=== PATIENT | female | born 1930 | race Caucasian/White ===

== ENCOUNTER 2017-01-23 11:30 | Inpatient (IN) | payer BC, OTHER ==
[2017-01-23] VITALS (10 sets, daily range): BP systolic 150–220; BP diastolic 66–89; PULSE 54–64; TEMP 36.5–36.8; O2SAT 95–98; Ht 162.6 cm; Wt 90.1 kg
[~2017-01-23] VITALS: Ht 162.6 cm; Wt 90.1 kg
[2017-01-23 12:15] LABS: BASO % 0.2 %; BASO ABS # 0.02 K/uL (0-0.2); COMPLETE YES; EOS % 1.8 %; HEMATOCRIT 37.9 % (37-47); IG% 0.3 %; LYMPH % 12.3 %; LYMPH ABS # 1.26 K/uL (1.2-3.4); MEAN CELL VOLUME 90.2 fL (80-100); MEAN CORPUSCULAR HEMOGLOBIN 30.7 pg (25-34); MEAN PLATELET VOLUME 10.4 fL (7.4-10.4); MONO % 9.1 %; NEUT % 76.3 %; PLATELET COUNT 256 K/uL (130-400); WHITE BLOOD COUNT 10.25 K/uL (4.8-10.8)
[2017-01-23 12:34] LABS: BLOOD UREA NITROGEN 27 mg/dl (7-18); GLUCOSE 90 mg/dl (70-99)
[2017-01-23 12:35] LABS: ALT/SGPT 41 U/L (12-78); BUN/CREATININE RATIO 15.9 (10-20); CALCIUM 10.4 mg/dl (8.5-10.1); CARBON DIOXIDE 26 mmol/L (21-32); CHLORIDE 106 mmol/L (98-107); POTASSIUM 4.3 mmol/L (3.5-5.1); SODIUM 138 mmol/L (136-145)
[2017-01-23 12:40] LABS: ALKALINE PHOSPHATASE 143 U/L (45-117); AST/SGOT 28 U/L (15-37); CKMB/CK RATIO 7.7 (0-3.0)
[2017-01-23] MEDS ORDERED: MULT60CA PO (12:48)
--- NOTE | 2017-01-23 13:00 | DIAGNOSTIC IMAGING REPORT ---
CHEST ONE VIEW PORTABLE CLINICAL HISTORY: Chest pain, jaw pain and sweating. COMPARISON STUDY: No previous studies for comparison. FINDINGS: Lung volumes are normal. There is no consolidation to suggest pneumonia and there is no evidence of pulmonary edema. There is an equivocal hiatal hernia. Mild cardiomegaly is noted. No pneumothorax or pleural effusion is present. IMPRESSION: 1. No acute cardiopulmonary findings. 2. Mild cardiomegaly. Electronically signed by: Jeffry Carranza M.D. 01/23/2017 12:59 PM Dictated Date/Time: 01/23/2017 12:58 PM
--- NOTE | 2017-01-23 13:05 | EMERGENCY ROOM VISIT NOTE ---
History Report prepared by An: Freddie Avalos Under the Supervision of: Dr. Az Penny M.D. First contact with patient: 11:46 Chief Complaint: CARDIAC ASSESSMENT Stated Complaint: PREV. EVENING, JAW PAIN, SWEATING, SLIGHT NAUSEA Nursing Triage Summary: Pt reports last night sweating, pain on b/l jaw, decreased appetite, nausea. Pt states sent by PCP, had a routine appt with him this morning. Mild SOB. Denies lightheaded or cp. Denies any pain at present time. Pt states she is unsure if she had cp last night as her "jaw pain was so bad." History of Present Illness The patient is a 86 year old female who presents to the Emergency Room with complaints of intermittent bilateral jaw pain beginning yesterday. She also complains of mild shortness of breath, nausea, and sweating along with her episodes of pain. She states that she has been having increasing shortness of breath for the past year. The patient had a routine check up with her PCP this morning and was referred to the ED. She has no cardiac history, but has a history of hypertension. She has a family history of heart attack at a young age. The patient denies any chest pain, neck pain, back pain, or calf pain. She had a stress test about a year ago. Source of History: patient Onset: Yesterday Position: jaw (bilateral) Timing: intermittent Associated Symptoms: + diaphoresis, + SOB (mild), + nausea, No neck pain, No chest pain, No back pain Note: The patient denies any calf pain. Review of Systems See HPI for pertinent positives & negatives. A total of 10 systems reviewed and were otherwise negative. Past Medical & Surgical Medical Problems: (1) HTN (hypertension) Old medical records were reviewed. Nurse's notes were reviewed and I agree with. Family History No pertinent family history stated. Social History Smoking Status: Never Smoker Drug Use: none Occupation Status: retired Current/Historical Medications Scheduled Multiple Vitamins W/ Minerals (Preservision Areds 2), 1 CAP PO BID Allergies Coded Allergies: No Known Allergies (Unverified , 01/23/17) Physical Exam Vital Signs Date Time Temp Pulse Resp B/P (MAP) Pulse Ox O2 Delivery O2 Flow Rate FiO2 01/23/17 13:11 50 18 186/90 98 Room Air 01/23/17 12:14 56 01/23/17 11:49 97 Room Air 01/23/17 11:41 36.8 55 18 192/78 95 Room Air Physical Exam General: Non-ill appearing older female in no acute distress. HEENT: Normal cephalic atraumatic. Pupils are equal round and reactive to light. Extraocular movements are intact. Oropharynx is pink with moist mucous membranes. No swelling of the mouth lips or tongue. Neck: Supple with a midline trachea. No meningeal signs or stiffness, no JVD or bruits. No Stridor. Chest: Clear to auscultation bilaterally. No wheezes or rhonchi. No increased work of breathing. Heart: regular rate and rhythm. Abdomen: Soft nontender, nondistended without rebound guarding or rigidity. Extremities: No cyanosis clubbing or edema. No calf tenderness or assymetry Spine/Back. Non tender to palpation. No CVA tenderness Skin: Good turgor without rashes. Neurologic exam: Cranial nerves two through 12 are intact. Motor and sensation are intact and symmetrical throughout. Medical Decision & Procedures ER Provider Diagnostic Interpretation: X-ray results as stated below per interpretation by me and the radiologist: CHEST ONE VIEW PORTABLE FINDINGS: Lung volumes are normal. There is no consolidation to suggest pneumonia and there is no evidence of pulmonary edema. There is an equivocal hiatal hernia. Mild cardiomegaly is noted. No pneumothorax or pleural effusion is present. IMPRESSION: 1. No acute cardiopulmonary findings. 2. Mild cardiomegaly. Electronically signed by: Jeffry Carranza M.D. Laboratory Results 01/23/17 12:00 Red Blood Count 4.20, Mean Corpuscular Volume 90.2, Mean Corpuscular Hemoglobin 30.7, Mean Corpuscular Hemoglobin Concent 34.0, Mean Platelet Volume 10.4, Neutrophils (%) (Auto) 76.3, Lymphocytes (%) (Auto) 12.3, Monocytes (%) (Auto) 9.1, Eosinophils (%) (Auto) 1.8, Basophils (%) (Auto) 0.2, Neutrophils # (Auto) 7.83, Lymphocytes # (Auto) 1.26, Monocytes # (Auto) 0.93, Eosinophils # (Auto) 0.18, Basophils # (Auto) 0.02 Test 01/23/17 12:00 01/23/17 12:10 White Blood Count 10.25 K/uL (4.8-10.8) Red Blood Count 4.20 M/uL (4.2-5.4) Hemoglobin 12.9 g/dL (12.0-16.0) Hematocrit 37.9 % (37-47) Mean Corpuscular Volume 90.2 fL (80-100) Mean Corpuscular Hemoglobin 30.7 pg (25-34) Mean Corpuscular Hemoglobin Concent 34.0 g/dl (32-36) Platelet Count 256 K/uL (130-400) Mean Platelet Volume 10.4 fL (7.4-10.4) Neutrophils (%) (Auto) 76.3 % Lymphocytes (%) (Auto) 12.3 % Monocytes (%) (Auto) 9.1 % Eosinophils (%) (Auto) 1.8 % Basophils (%) (Auto) 0.2 % Neutrophils # (Auto) 7.83 K/uL (1.4-6.5) Lymphocytes # (Auto) 1.26 K/uL (1.2-3.4) Monocytes # (Auto) 0.93 K/uL (0.11-0.59) Eosinophils # (Auto) 0.18 K/uL (0-0.5) Basophils # (Auto) 0.02 K/uL (0-0.2) RDW Standard Deviation 45.6 fL (36.4-46.3) RDW Coefficient of Variation 13.8 % (11.5-14.5) Immature Granulocyte % (Auto) 0.3 % Immature Granulocyte # (Auto) 0.03 K/uL (0.00-0.02) Prothrombin Time 10.1 SECONDS (9.0-12.0) Prothromb Time International Ratio 0.9 (0.9-1.1) Total Bilirubin 0.4 mg/dl (0.2-1) Direct Bilirubin < 0.1 mg/dl (0-0.2) Aspartate Amino Transf (AST/SGOT) 28 U/L (15-37) Alanine Aminotransferase (ALT/SGPT) 41 U/L (12-78) Alkaline Phosphatase 143 U/L (45-117) Total Protein 7.6 gm/dl (6.4-8.2) Albumin 3.7 gm/dl (3.4-5.0) Lipase 273 U/L (73-393) 25-Hydroxy Vitamin D Total 61.9 ng/ml (30-100) Thyroid Stimulating Hormone (TSH) 1.660 uIu/ml (0.300-4.500) Bedside Troponin I 1.500 ng/ml (0-0.045) Laboratory studies as stated above per my review. ECG Indication: other (jaw pain) Rate (beats per minute): 56 Rhythm: sinus bradycardia Findings: no ectopy, other (No definite acute ischemic changes) Comparison ECG Date: May 12, 2010 Change: Questionable inferior ST changes. ED Course 1148: Past medical records reviewed. The patient was evaluated in room C10, and a complete history and physical examination were performed. 1245: Upon reevaluation, the patient is resting comfortably. I discussed the results and treatment plan with the patient. She verbalized agreement of the treatment plan. The patient will be evaluated for further management. Medical Decision Differentials include, but are not limited to; acute coronary syndrome, arrhythmia, dental abnormality, CHF, infection, and electrolyte or metabolic abnormality. Blood pressure Screening: Patient was found to have an elevated blood pressure. Referral was deterred to the hospitalist team. Medication Reconciliation: I attest that I have personally reviewed the patient' s current medication list. This patient comes in as described above. She had jaw pain last night and her primary care physician was concerned for possible angina. Her symptoms have resolved at present and she looks well. She has no chest pain, shortness of breath or jaw pain at present. Her initial EKG shows some questionable changes inferiorly. I did of a follow-up EKG which shows resolution of these potential changes and no progression. Her troponin however was significantly elevated at 1.5. This suggests that she's had a non-ST segment elevation [place] last evening. She has no findings to suggest. She i= has no findings to suggest that she is s in congestive heart failure . She has no acute electrode or metabolic abnormalities. She's had no arrhythmia. She did receive a full strength aspirin in the primary care doctor's office. She needs to be admitted for further cardiac workup treatment and evaluation and again at this point, she is 100% asymptomatic and will be admitted. I did consult Dr. Mcguire who saw her in the emergency department. Consults Time Called: [phone] Consulting Physician: Dr. Mcguire -[facility] [place] Returned Call: [phone] Discussed the patient's case. The patient will be evaluated for further management. Impression Primary Impression: NSTEMI (non-ST elevated myocardial infarction) Additional Impressions: Jaw pain Elevated troponin Scribe Attestation The scribe's documentation has been prepared under my direction and personally reviewed by me in its entirety. I confirm that the note above accurately reflects all work, treatment, procedures, and medical decision making performed by me. Departure Information Dispostion Being Evaluated By Hospitalist Referrals Charly Santillan M.D. (PCP) Patient Instructions My [facility] Problem Qualifiers
[2017-01-23] MEDS ORDERED: NITROGLYCERIN 0.4 MG SL PER TAB CHARGE SL PRN (14:00)
[2017-01-23] MEDS ORDERED: ACETAMINOPHEN 325 MG TAB PO PRN (14:00)
[2017-01-23] MEDS ORDERED: ONDANSETRON INJ 2 MG/ML 2 ML VIAL IV PRN (14:00)
[2017-01-23] MEDS ORDERED: MoRPHine SULFATE 2 MG/ML CARP IV PRN (14:00)
[2017-01-23] MEDS ORDERED: PNEUMOCOCCAL ADMINISTRATION CHARGE ONE (14:45)
[2017-01-23] MEDS ORDERED: PNEUMOCOCCAL POLYSACCHARIDES 25 MCG/0.5 ML VIAL/SYR IM. ONE (14:45)
[2017-01-23] MEDS: HydrALAZINE HCL 20 MG/ML VIAL IV. PRN (15:06)
[2017-01-23] MEDS ORDERED: NiCARDipine HCL INJ 2.5 MG/ML 10 ML AMP ONE (15:14)
[2017-01-23] MEDS ORDERED: HEPARIN SOD (PORCINE) 1000 UNIT/ML 10 ML VIAL ONE (15:14)
[2017-01-23] MEDS ORDERED: FENTANYL CITRATE INJ 50 MCG/1 ML 2 ML VIAL ONE (15:14)
[2017-01-23] MEDS ORDERED: MIDAZOLAM HCL 1 MG/ML 2ML VIAL ONE (15:15)
[2017-01-23] MEDS ORDERED: NITROGLYCERIN OINT 2% 1GM PACKET EXT PRN (15:15)
[2017-01-23] MEDS ORDERED: NITROGLYCERIN/D5W 100MCG/ML 20ML SYR ONE (15:15)
[2017-01-23] MEDS ORDERED: METOPROLOL TARTRATE 25 MG TAB PO ONE (15:26)
[2017-01-23] MEDS ORDERED: HEPARIN IV BOLUS 5,000 UNIT in SYRINGE 0 ML IV ONE (15:30)
[2017-01-23] MEDS ORDERED: HEPARIN 25000 UNIT/ D5W 500 ML (PHARMACY PREPARED) IV PRN ×2 (15:30)
[2017-01-23 15:33] LABS: INR 0.9 (0.9-1.1); PARTIAL THROMBOPLASTIN RATIO 1.1; PROTHROMBIN TIME (PATIENT) 10.1 SECONDS (9.0-12.0)
--- NOTE | 2017-01-23 15:39 | History and Physical ---
History & Physical Date & Time of Service: Jan 23, 2017 at 13:58 Chief Complaint: Prev. Evening, Jaw Pain, Sweating, Slight Nausea Primary Care Physician: Charly Santillan M.D. History of Present Illness Source: patient, family Pt is an 86 yo female with a h/o HTN (not treated with Rx meds, but is on herbal supplements), CKD Stage III, who presents with left sided jaw pain that came on last night at rest around 1800 after eating dinner. She states it was severe, a 10/10 in severity,nonradiating, associated with profuse diaphoresis and some nausea. She took an ASA at home and had very minimal relief but was able to go to sleep by 1930. When she woke up this AM, the pain was gone but she had a regularly scheduled well visit with her PCP this AM. SHe told him the story and he gave her ASA 325mg and sent her to the ER. In ER her initial ECG showed possible ST elevation in III and not quite in lead II, which then resolved on subsequent ECG, but troponin was elevated at 1.5. She remained completely symptom free in the ER. She was quite hypertensive in the 190s-200s systolic. SHe is very hesitant to take any prescription meds at all, but does take well over 50 separate herbal supplements on a daily basis (list too long to put in Med Rec). The case was discussed with Cardiology Dr. Lee and she will undergo cardiac cath tomorrow Past Medical/Surgical History PMH: HTN (hypertension) CKD Stage III PSH: Ch's Neuroma removal Family History Father- of [place] age 62, smoker Mother- age 98, healthy Sister-living age 92 and healthy Social History MEDICATIONS: MULTIPLE HOME MEDS ALL HERBAL SUPPLEMENTS not entered in MED REC Smoking Status: Never Smoker Alcohol Use: none Drug Use: none Housing status: lives alone Occupational Status: retired Multi-Drug Resistant Organisms History of MDRO: No Allergies Coded Allergies: No Known Allergies (Unverified , 01/23/17) Home Medications Scheduled Multiple Vitamins W/ Minerals (Preservision Areds 2), 1 CAP PO BID Review of Systems Constitutional: No fever, No chills Eyes: No problem reported ENT: No problem reported Respiratory: No shortness of breath Cardiovascular: No chest pain, No edema Abdomen: + problem reported (does have some ext hemorrhoids), No pain, No nausea, No vomiting, No GI bleeding Musculoskeletal: No problem reported Genitourinary - Female: No problem reported Neurologic: No problem reported Psychiatric: No problem reported Endocrine: No problem reported Hematologic / Lymphatic: No problem reported Integumentary: No problem reported Allergic / Immunologic: No problem reported Physical Exam Vital Signs Date Time Temp Pulse Resp B/P (MAP) Pulse Ox O2 Delivery O2 Flow Rate FiO2 01/23/17 13:11 50 18 186/90 98 Room Air 01/23/17 12:14 56 01/23/17 11:49 97 Room Air 01/23/17 11:41 36.8 55 18 192/78 95 Room Air General Appearance: WD/WN, no apparent distress Head: normocephalic, atraumatic Eyes: normal inspection, PERRL, EOMI, sclerae normal ENT: hearing grossly normal, pharynx normal Neck: supple, no adenopathy, thyroid normal, no JVD, no carotid bruits, trachea midline Respiratory/Chest: lungs clear, normal breath sounds, no respiratory distress, no accessory muscle use Cardiovascular: no gallop, no murmur, normal peripheral pulses, + bradycardia ( with regular rhythm), + pertinent finding (trace pitting edema legs bilat) Abdomen/GI: normal bowel sounds, non tender, soft, no organomegaly, no pulsatile mass Back: normal inspection, no muscle spasm Extremities/Musculoskelatal: normal inspection, no calf tenderness, no pedal edema, normal range of motion Neurologic/Psych: no motor/sensory deficits, alert, normal mood/affect, oriented x 3 Skin: normal color, warm/dry, no rash Diagnostics Laboratory Results Results Past 24 Hours Test 01/23/17 11:56 01/23/17 12:00 01/23/17 12:10 Range/Units Creatine Kinase MB Ratio 7.7 0-3.0 White Blood Count 10.25 4.8-10.8 K/uL Red Blood Count 4.20 4.2-5.4 M/uL Hemoglobin 12.9 12.0-16.0 g/dL Hematocrit 37.9 37-47 % Mean Corpuscular Volume 90.2 80-100 fL Mean Corpuscular Hemoglobin 30.7 25-34 pg Mean Corpuscular Hemoglobin Concent 34.0 32-36 g/dl Platelet Count 256 130-400 K/uL Mean Platelet Volume 10.4 7.4-10.4 fL Neutrophils (%) (Auto) 76.3 % Lymphocytes (%) (Auto) 12.3 % Monocytes (%) (Auto) 9.1 % Eosinophils (%) (Auto) 1.8 % Basophils (%) (Auto) 0.2 % Neutrophils # (Auto) 7.83 1.4-6.5 K/uL Lymphocytes # (Auto) 1.26 1.2-3.4 K/uL Monocytes # (Auto) 0.93 0.11-0.59 K/uL Eosinophils # (Auto) 0.18 0-0.5 K/uL Basophils # (Auto) 0.02 0-0.2 K/uL RDW Standard Deviation 45.6 36.4-46.3 fL RDW Coefficient of Variation 13.8 11.5-14.5 % Immature Granulocyte % (Auto) 0.3 % Immature Granulocyte # (Auto) 0.03 0.00-0.02 K/uL Sodium Level 138 136-145 mmol/L Potassium Level 4.3 3.5-5.1 mmol/L Chloride Level 106 98-107 mmol/L Carbon Dioxide Level 26 21-32 mmol/L Anion Gap 6.0 3-11 mmol/L Blood Urea Nitrogen 27 7-18 mg/dl Creatinine 1.70 0.60-1.20 mg/dl Est Creatinine Clear Calc Drug Dose 25.1 ml/min Estimated GFR () 30.9 Estimated GFR (Non- 26.6 BUN/Creatinine Ratio 15.9 10-20 Random Glucose 90 70-99 mg/dl Calcium Level 10.4 8.5-10.1 mg/dl Total Bilirubin 0.4 0.2-1 mg/dl Direct Bilirubin < 0.1 0-0.2 mg/dl Aspartate Amino Transf (AST/SGOT) 28 15-37 U/L Alanine Aminotransferase (ALT/SGPT) 41 12-78 U/L Alkaline Phosphatase 143 45-117 U/L Total Creatine Kinase 122 26-192 U/L Creatine Kinase MB 9.4 0.5-3.6 ng/ml Total Protein 7.6 6.4-8.2 gm/dl Albumin 3.7 3.4-5.0 gm/dl Lipase 273 73-393 U/L Bedside Troponin I 1.500 0-0.045 ng/ml Diagnostic Radiology CXR image personally reviewed by me and I agree with Rad assessment: CHEST ONE VIEW PORTABLE CLINICAL HISTORY: Chest pain, jaw pain and sweating. COMPARISON STUDY: No previous studies for comparison. FINDINGS: Lung volumes are normal. There is no consolidation to suggest pneumonia and there is no evidence of pulmonary edema. There is an equivocal hiatal hernia. Mild cardiomegaly is noted. No pneumothorax or pleural effusion is present. IMPRESSION: 1. No acute cardiopulmonary findings. 2. Mild cardiomegaly. EKG 1st ECG: Sinus xuan, ST elevation 1 mm lead III, 1/2 mm lead II 2nd ECG: Sinus xuan with 1st degree AV block, no ST elevations, left axis deviation Impression Assessment and Plan Pt is an 86 yo female with a h/o HTN (not treated with Rx meds, but is on herbal supplements), CKD Stage III, who presents with left sided jaw pain that came on last night at rest around 1800 after eating dinner. She states it was severe, a 10/10 in severity,nonradiating, associated with profuse diaphoresis and some nausea. She took an ASA at home and had very minimal relief but was able to go to sleep by 1930. When she woke up this AM, the pain was gone but she had a regularly scheduled well visit with her PCP this AM. SHe told him the story and he gave her ASA 325mg and sent her to the ER. In ER her initial ECG showed possible ST elevation in III and not quite in lead II, which then resolved on subsequent ECG, but troponin was elevated at 1.5. She remained completely symptom free in the ER. She was quite hypertensive in the 190s-200s systolic. SHe is very hesitant to take any prescription meds at all, but does take well over 50 separate herbal supplements on a daily basis (list too long to put in Med Rec). The case was discussed with Cardiology Dr. Lee and she will undergo cardiac cath tomorrow NSTEMI- no further jaw pain or symptoms. Troponin 1.5 initially, some dynamic ECG changes. ECHO at bedside with Security Compliance Engineer after admission showed no WMAs. -Consult to Cardiology appreciated -plan for cardiac cath on Sun however pt is saying she's not sure if she wants to go through with the procedure -continue ASA 81mg daily -start heparin gtt now after checking coags -trend troponins and CK,CK-MB -Cardiology says ok to give low dose metoprolol despite bradycardia--> start metoprolol [id number] po bid -tele monitoring -check lipid panel in AM -f/u on official ECHO report Hypertensive emergency-evidence of end-organ damage with LA, untreated with Rx drugs due to pt preference. Home BP low shows numerous readings in the 140s- 160s systolic that she brings with her. On some herbal supplements that are supposed to treat HTN -give hydralazine 10mg IV now -if BP still elevated, give Nitropaste 0.5in q6 Elevated Alk phos-likely secondary to fatty liver. Daughter thinks she has had this mild elevation for years. -no hermes pneeded inpatient -f/u with PCP Hypercalcemia-mild, unclear if change from baseline -check Vit D and iPTH as she is taking Vit D supplements in two forms as outpatient Proph- heparin gtt, SCDs Dispo-FULL CODE but pt is undecided, wants to discuss it with her daughter and may change her mind to a DNR Level of Care Telemetry Resuscitation Status FULL RESUSCITATION VTE Prophylaxis VTE Risk Assessment Done? Y/N: Yes Risk Level: Low Given or contraindicated: Unfractionated heparin SQ Additional Copies To Charly Santillan M.D.
--- NOTE | 2017-01-23 16:11 | ECHOCARDIOGRAM REPORT ---
*NOTICE TO RECEIVING [employer] This information is strictly Confidential and protected under [place] law. [place] law prohibits you from making any further disclosure of this information unless further disclosure is expressly permitted by the written consent of the person to whom it pertains or is authorized by law. A general authorization for the release of medical or other information is not sufficient for this purpose. Hospital accepts no responsibility if the information is made available to any other person, INCLUDING THE PATIENT. Interpretation Summary * Name: CHER VALLES Study Date: 01/23/2017 02:58 PM BP: 186/90 mmHg * Patient Location: C.2E\S\E204\S\1 HR: 52 * : 1930 (M/d/yyyy) Gender: Female Height: 64 in * Age: 86 yrs Ethnicity: [place] Weight: 194 lb * Ordering Physician: Radha Mcguire * Referring Physician: Self, Referred * Performed By: Serjio Smith RCS * * Reason For Study: Chest pain * BSA: 1.9 m2 * -- Conclusions -- * The left ventricle is hyperdynamic. * Grade I diastolic dysfunction, (abnormal relaxation pattern). * There is moderate right ventricular hypertrophy. * Mild aortic regurgitation. * Right ventricular systolic pressure is normal. Procedure Details * Left Ventricle The left ventricle is normal in size. There is normal left ventricular wall thickness. Ejection Fraction = 60-65%. The left ventricle is hyperdynamic. Grade I diastolic dysfunction, (abnormal relaxation pattern). * Right Ventricle The right ventricle is grossly normal size. There is moderate right ventricular hypertrophy. The right ventricular systolic function is normal. * Atria The left atrial size is normal. Right atrial size is normal. * Mitral Valve The mitral valve leaflets appear thickened, but open well. Significant mitral regurgitation is absent. * Tricuspid Valve The tricuspid valve is not well visualized. There is trace tricuspid regurgitation. Right ventricular systolic pressure is normal. * Aortic Valve The aortic valve is trileaflet. No hemodynamically significant valvular aortic stenosis. Mild aortic regurgitation. * Great Vessels The aortic root is normal size. * Pericardium/Pleural There is no pericardial effusion. * * MMode 2D Measurements and Calculations * IVSd 1.1 cm * * LVIDd 4.8 cm * LVIDs 2.6 cm * LVPWd 1.1 cm * * IVS/LVPW 1.0 * FS 45.4 % * EDV(Teich) 107.3 ml * ESV(Teich) 25.0 ml * EF(Teich) 76.7 % * * EDV(cubed) 110.3 ml * ESV(cubed) 17.9 ml * EF(cubed) 83.8 % * * LV mass(C)d 191.4 grams * LV mass(C)dI 99.1 grams/m\S\2 * * SV(Teich) 82.3 ml * SI(Teich) 42.6 ml/m\S\2 * SV(cubed) 92.4 ml * SI(cubed) 47.9 ml/m\S\2 * * Ao root diam 3.0 cm * Ao root area 7.3 cm\S\2 * * asc Aorta Diam 3.1 cm * * LVOT diam 2.1 cm * LVOT area 3.3 cm\S\2 * * LVAd ap4 32.7 cm\S\2 * LVLd ap4 8.3 cm * EDV(MOD-sp4) 108.4 ml * EDV(sp4-el) 109.2 ml * LVAs ap4 15.2 cm\S\2 * LVLs ap4 6.4 cm * ESV(MOD-sp4) 34.7 ml * ESV(sp4-el) 30.8 ml * EF(MOD-sp4) 68.0 % * EF(sp4-el) 71.8 % * * LVAd ap2 25.3 cm\S\2 * LVLd ap2 7.6 cm * EDV(MOD-sp2) 73.3 ml * EDV(sp2-el) 71.9 ml * LVAs ap2 12.3 cm\S\2 * LVLs ap2 5.8 cm * ESV(MOD-sp2) 23.5 ml * ESV(sp2-el) 22.4 ml * EF(MOD-sp2) 68.0 % * EF(sp2-el) 68.8 % * * LVLd %diff -10.01 % * EDV(MOD-bp) 93.3 ml * LVLs %diff -11.17 % * ESV(MOD-bp) 29.2 ml * EF(MOD-bp) 68.7 % * * SV(MOD-sp4) 73.8 ml * SI(MOD-sp4) 38.2 ml/m\S\2 * * SV(MOD-sp2) 49.8 ml * SI(MOD-sp2) 25.8 ml/m\S\2 * * SV(MOD-bp) 64.1 ml * SI(MOD-bp) 33.2 ml/m\S\2 * * SV(sp4-el) 78.4 ml * SI(sp4-el) 40.6 ml/m\S\2 * * SV(sp2-el) 49.5 ml * SI(sp2-el) 25.6 ml/m\S\2 * * * * * * Doppler Measurements and Calculations * MV E max alex 73.7 cm/sec * MV A max alex 123.7 cm/sec * * MV E/A 0.60 * * MV dec time 0.37 sec * * Ao V2 max 154.3 cm/sec * Ao max PG 9.5 mmHg * Ao max PG (full) 4.2 mmHg * MARIE(V,A) 2.5 cm\S\2 * MARIE(V,D) 2.5 cm\S\2 * * LV V1 max PG 5.3 mmHg * * LV V1 max 114.9 cm/sec * * TR max alex 209.0 cm/sec * * *
--- NOTE | 2017-01-23 17:12 | Medical Student: [facility] ---
Med Student History & Physical Date & Time of Service: Jan 23, 2017 at 16:03 Chief Complaint: Nstemi (Non-St Elevated Myocardial Infraction) Primary Care Physician: Charly Santillan M.D. History of Present Illness Source: patient 86yo female with history of HTN presenting with an episode of 4hr LT jaw/facial pain last night that has resolved. Pain began at 6pm, did no radiate anywhere, and was described as "excruciating", rated 10/10. She took home baby aspirin 81mg for pain management with minimal relief at around 7pm. She also reports concurrent mild nausea, diaphoresis, anorexia with dinner, and perhaps some mild chest discomfort but she is unsure, the pain in the jaw dominated all else per patient. Pain receded at 10pm and patient went to bed. She reports having jaw pain before that lasted approx. 5min before spontaneously resolving. She had no symptoms upon waking this morning. Patient went to her PCP this am for a pre-scheduled wellness visit where she was given aspirin 325mg and sent to ED for evaluation. Patient denies experiencing any SOB, tachypnea, tachycardia, palpitations, dizziness, vomiting, fever, and urinary/bowel changes Past Medical/Surgical History PMH Hearing impairment - wears hearing aids HTN - no medication Vaccinations are not up to date per patient preference Medications No prescription medications +25 supplements taken daily, see chart for details PSH Ch neuroma removal 40years ago Family History Father: HTN, [place] at 62 resulting in Remainder of family non-contributory Social History Never smoker No alcohol or illicit drug use Retired Diet - fairly good, decreased appetite over past few years Activity - does not exercise Smoking Status: Never Smoker Smokeless Tobacco Use: No Alcohol Use: none Drug Use: none Housing status: lives alone Occupational Status: retired Allergies Coded Allergies: No Known Allergies (Unverified , 01/23/17) Medications Multiple Vitamins W/ Minerals (Preservision Areds 2), 1 CAP PO BID Review of Systems Constitutional: No fever, No chills, No sweats, No weakness Eyes: No problem reported ENT: No problem reported Respiratory: No shortness of breath Cardiovascular: No chest pain, No edema, No palpitations Abdomen: + nausea (mild with pain, now resolved), No pain, No vomiting, No diarrhea, No constipation, No GI bleeding Musculoskeletal: No problem reported Neurologic: No weakness, No numbness/tingling Psychiatric: No problem reported Hematologic / Lymphatic: No problem reported Integumentary: No rash, No new/changing skin lesions Allergic / Immunologic: No environmental allergies, No seasonal allergies, No food allergies Physical Exam Vital Signs (24 Hours) Date Time Temp Pulse Resp B/P (MAP) Pulse Ox O2 Delivery O2 Flow Rate FiO2 01/23/17 14:19 54 16 200/90 96 Room Air 01/23/17 14:00 98 Room Air 01/23/17 13:11 50 18 186/90 98 Room Air 01/23/17 12:14 56 01/23/17 11:49 97 Room Air 01/23/17 11:41 36.8 55 18 192/78 95 Room Air General Appearance: no apparent distress, + obese Head: normocephalic, atraumatic Eyes: normal inspection, PERRL, sclerae normal ENT: pharynx normal Neck: supple, no adenopathy, no JVD, no carotid bruits, trachea midline Respiratory/Chest: chest non-tender, lungs clear, normal breath sounds, no respiratory distress, no accessory muscle use Cardiovascular: no JVD, + bradycardia, + pertinent finding (mild pitting edema lower extremities) Abdomen/GI: normal bowel sounds, non tender, soft, no organomegaly, no pulsatile mass, + hernia (umbilical - chronic) Back: normal inspection Extremities/Musculoskelatal: normal capillary refill, + pedal edema (mild) Neurologic/Psych: alert, normal mood/affect, oriented x 3 Skin: normal color, warm/dry, no rash Lymphatic: no adenopathy Diagnostics Laboratory Results Results Past 24 Hours Test 01/23/17 11:56 01/23/17 12:00 01/23/17 12:10 01/23/17 15:38 Range/Units Creatine Kinase MB Ratio 7.7 0-3.0 White Blood Count 10.25 4.8-10.8 K/uL Red Blood Count 4.20 4.2-5.4 M/uL Hemoglobin 12.9 12.0-16.0 g/dL Hematocrit 37.9 37-47 % Mean Corpuscular Volume 90.2 80-100 fL Mean Corpuscular Hemoglobin 30.7 25-34 pg Mean Corpuscular Hemoglobin Concent 34.0 32-36 g/dl Platelet Count 256 130-400 K/uL Mean Platelet Volume 10.4 7.4-10.4 fL Neutrophils (%) (Auto) 76.3 % Lymphocytes (%) (Auto) 12.3 % Monocytes (%) (Auto) 9.1 % Eosinophils (%) (Auto) 1.8 % Basophils (%) (Auto) 0.2 % Neutrophils # (Auto) 7.83 1.4-6.5 K/uL Lymphocytes # (Auto) 1.26 1.2-3.4 K/uL Monocytes # (Auto) 0.93 0.11-0.59 K/uL Eosinophils # (Auto) 0.18 0-0.5 K/uL Basophils # (Auto) 0.02 0-0.2 K/uL RDW Standard Deviation 45.6 36.4-46.3 fL RDW Coefficient of Variation 13.8 11.5-14.5 % Immature Granulocyte % (Auto) 0.3 % Immature Granulocyte # (Auto) 0.03 0.00-0.02 K/uL Prothrombin Time 10.1 9.0-12.0 SECONDS Prothromb Time International Ratio 0.9 0.9-1.1 Activated Partial Thromboplast Time 28.5 21.0-31.0 SECONDS Partial Thromboplastin Ratio 1.1 Sodium Level 138 136-145 mmol/L Potassium Level 4.3 3.5-5.1 mmol/L Chloride Level 106 98-107 mmol/L Carbon Dioxide Level 26 21-32 mmol/L Anion Gap 6.0 3-11 mmol/L Blood Urea Nitrogen 27 7-18 mg/dl Creatinine 1.70 0.60-1.20 mg/dl Est Creatinine Clear Calc Drug Dose 25.1 ml/min Estimated GFR () 30.9 Estimated GFR (Non- 26.6 BUN/Creatinine Ratio 15.9 10-20 Random Glucose 90 70-99 mg/dl Calcium Level 10.4 8.5-10.1 mg/dl Total Bilirubin 0.4 0.2-1 mg/dl Direct Bilirubin < 0.1 0-0.2 mg/dl Aspartate Amino Transf (AST/SGOT) 28 15-37 U/L Alanine Aminotransferase (ALT/SGPT) 41 12-78 U/L Alkaline Phosphatase 143 45-117 U/L Total Creatine Kinase 122 26-192 U/L Creatine Kinase MB 9.4 0.5-3.6 ng/ml Total Protein 7.6 6.4-8.2 gm/dl Albumin 3.7 3.4-5.0 gm/dl Lipase 273 73-393 U/L Bedside Troponin I 1.500 0-0.045 ng/ml Diagnostic Radiology Chest Xray 01/23 - Minor hiatal hernia - No acute cardiopulmonary process - Mild cardiomegaly CXR normal EKG Initial - Sinus bradycardia with first degree AV block - Mild ST elevation III, insignificant in aVR - T wave inversion V2 Second - No ST elevation or t wave inversion - LT axial deviation approx. -30degrees Impression Assessment and Plan Jaw pain secondary to NSTEMI unspecified - resolved - Echocardiogram to evaluate LV function, compare to old - Consult with cardiology for possible catheterization - Begin heparin drip in preparation for cath procedure - Addition nitro PRN, daily aspirin 81mg, lisinopril 10mg - Consider metoprolol 12.5mg (concern for bradycardia) - EKG PRN with return of pain Hypertension - 200s/90-100s - Hydralazine IV 20mg - Nitro past 0.5inch for further reduction - Consider metoprolol 12.5mg for additional control, concern for bradycardia Chronic Kidney Disease Stage 3 - elevated BUN + cret ( 27, 1.3) - Access PCP records - per patient these levels are typical - Trend while inpatient - Dose hospital medications with impaired renal function in mind Hypercalcemia - 10.4 - Attain vitamin D level to access for increased absorption due to supplementations contents - PTH level to evaluate endocrine/malignant etiology - Assess volume status as depletion can elevate levels Elevated alkaline phosphatase - 143 - Trend while hospitalized, if unresolved: - Attain GGT level to assess possible hepatic origin - Alk phos differentiation lab to determine bone v. biliary tract etiology Level of Care Telemetry Advanced Directives Existing Living Will: Yes Existing Power of Collet Gluer: Yes Note Total Time: Critical Care 30 - 74 minutes
--- NOTE | 2017-01-23 17:23 | Cardiology Consultation ---
Cardiology Consultation Date of Consultation: Jan 23, 2017. Requesting Physician: Dr. Mcguire Reason for Consultation: NSTEMI History of Present Illness Mrs. Phelps is an 86-year-old woman with a history of hypertension, stage 3 chronic kidney disease who presented today in setting of left-sided jaw pain, diaphoresis and nausea. The patient states that she was in her usual state of health yesterday until approximately 6:00 p.m. when developed jaw pain acutely while at rest. Pain persisted until she went to bed and eventually she was able to fall asleep. Patient awoke this morning with some mild residual jaw pain but improved from discomfort she had yesterday. She went to a regular scheduled visit with her PCP this morning who sent her to the emergency department. In the ED patient was chest pain free, hypertensive to 220s. Her initial EKG showed subtle ST elevations inferiorly, resolved on subsequent EKG. Her point of care troponin was positive at 1.5. She was admitted to telemetry has remained chest pain-free. Next No prior cardiac history. No prior similar pain in the past. Past Medical/Surgical History Hypertension (not on antihypertensives), stage 3 chronic kidney disease baseline serum creatinine around 1.7. Family History Father- of [place] age 62, smoker Mother- age 98, healthy Sister-living age 92 and healthyChoose Social History Smoking Status: Never Smoker History of Alcohol Use: No Review of Systems 10 point review of systems was completed and was otherwise negative unless stated in HPI Allergies Coded Allergies: No Known Allergies (Unverified , 01/23/17) Medications Current Inpatient Medications Medications (Trade) Dose Ordered Sig/Omaira Route Start Time Stop Time Status Last Admin Dose Admin Acetaminophen (Tylenol Tab) 650 mg Q4H PRN PO 01/23/17 14:00 02/22/17 13:59 Ondansetron HCl (Zofran Inj) 4 mg Q6H PRN IV 01/23/17 14:00 02/22/17 13:59 Nitroglycerin (Nitrostat Tab) 0.4 mg UD PRN SL 01/23/17 14:00 02/22/17 13:59 Morphine Sulfate (MoRPHine SULFATE INJ) 2 mg Q30M PRN IV 01/23/17 14:00 02/06/17 13:59 Aspirin (Ecotrin Tab) 81 mg QAM PO 01/24/17 09:00 02/23/17 08:59 Hydralazine HCl (HydrALAZINE INJ) 10 mg Q8H PRN IV. 01/23/17 14:45 02/22/17 14:44 01/23/17 15:06 10 MG Nitroglycerin (Nitroglycerin 2% Oint) 0.5 inch Q6H PRN EXT 01/23/17 15:15 02/22/17 15:14 Heparin Sodium (Porcine) 13957 unit/Dextrose 500 ml @ 24 mls/hr [id number] PRN IV 01/23/17 15:30 02/22/17 15:29 01/23/17 16:08 24 MLS/HR Metoprolol Tartrate (Lopressor Tab) 12.5 mg BID PO 01/23/17 21:00 02/22/17 20:59 Physical Exam Vital Signs Past 12 Hours Date Time Temp Pulse Resp B/P (MAP) Pulse Ox O2 Delivery O2 Flow Rate FiO2 01/23/17 16:34 36.5 61 18 185/75 (111) 97 Room Air 01/23/17 16:15 56 20 188/89 (122) 01/23/17 15:20 164/77 (106) 01/23/17 15:05 Room Air 01/23/17 15:05 36.8 54 16 220/89 (132) 96 Room Air 01/23/17 14:19 54 16 200/90 96 Room Air 01/23/17 14:00 98 Room Air 01/23/17 13:11 50 18 186/90 98 Room Air 01/23/17 12:14 56 01/23/17 11:49 97 Room Air 01/23/17 11:41 36.8 55 18 192/78 95 Room Air General: Comfortable, no acute distress, mildly obese Eyes: Sclerae anicteric, extraocular movements intact HENT: Oropharynx clear mucous membranes moist Neck: Supple, no lymphadenopathy, no thyromegaly. Lungs: Clear to auscultation bilaterally, no rhonchi or wheezes Cardiac: Regular rate and rhythm, no murmurs, rubs or gallops. No JVD. No peripheral edema. Extremities well perfused. Vascular: Normal carotid upstrokes, no bruits. 2+ radial, femoral, DP and PT pulses. No varicosities. Abdomen: Soft, nontender, nondistended positive bowel sounds. No hepatosplenomegaly Musculoskeletal: Normal gait. No joint deformities Skin: No rashes or lesions. Neuro: Cranial nerves 2-12 grossly intact, remainder exam nonfocal Psych: Alert orient x3, normal affect and mood Data Laboratory Results: Last 24 Hours Test 01/23/17 11:56 01/23/17 12:00 01/23/17 12:10 01/23/17 16:33 Creatine Kinase MB Ratio 7.7 White Blood Count 10.25 K/uL Red Blood Count 4.20 M/uL Hemoglobin 12.9 g/dL Hematocrit 37.9 % Mean Corpuscular Volume 90.2 fL Mean Corpuscular Hemoglobin 30.7 pg Mean Corpuscular Hemoglobin Concent 34.0 g/dl Platelet Count 256 K/uL Mean Platelet Volume 10.4 fL Neutrophils (%) (Auto) 76.3 % Lymphocytes (%) (Auto) 12.3 % Monocytes (%) (Auto) 9.1 % Eosinophils (%) (Auto) 1.8 % Basophils (%) (Auto) 0.2 % Neutrophils # (Auto) 7.83 K/uL Lymphocytes # (Auto) 1.26 K/uL Monocytes # (Auto) 0.93 K/uL Eosinophils # (Auto) 0.18 K/uL Basophils # (Auto) 0.02 K/uL RDW Standard Deviation 45.6 fL RDW Coefficient of Variation 13.8 % Immature Granulocyte % (Auto) 0.3 % Immature Granulocyte # (Auto) 0.03 K/uL Prothrombin Time 10.1 SECONDS Prothromb Time International Ratio 0.9 Activated Partial Thromboplast Time 28.5 SECONDS Partial Thromboplastin Ratio 1.1 Sodium Level 138 mmol/L Potassium Level 4.3 mmol/L Chloride Level 106 mmol/L Carbon Dioxide Level 26 mmol/L Anion Gap 6.0 mmol/L Blood Urea Nitrogen 27 mg/dl Creatinine 1.70 mg/dl Est Creatinine Clear Calc Drug Dose 25.1 ml/min Estimated GFR () 30.9 Estimated GFR (Non- 26.6 BUN/Creatinine Ratio 15.9 Random Glucose 90 mg/dl Calcium Level 10.4 mg/dl Total Bilirubin 0.4 mg/dl Direct Bilirubin < 0.1 mg/dl Aspartate Amino Transf (AST/SGOT) 28 U/L Alanine Aminotransferase (ALT/SGPT) 41 U/L Alkaline Phosphatase 143 U/L Total Creatine Kinase 122 U/L Creatine Kinase MB 9.4 ng/ml Total Protein 7.6 gm/dl Albumin 3.7 gm/dl Lipase 273 U/L 25-Hydroxy Vitamin D Total 61.9 ng/ml Thyroid Stimulating Hormone (TSH) 1.660 uIu/ml Bedside Troponin I 1.500 ng/ml Imaging: Chest x-ray with no acute cardiopulmonary process EKG: sinus bradycardia and, subtle ST elevations in 3 and aVF, resolved on subsequent EKGs Telemetry reviewed: no pauses or significant tachyarrhythmias Echo: LVEF 60-65%, grade 1 diastolic dysfunction, right ventricular hypertrophy , mild aortic regurgitation paste Assessment & Plan 1. ACS/NSTEMI 2. Hypertension 3. Chronic kidney disease Current presentation consistent with acute coronary syndrome/NSTEMI. At present patient is chest pain free, hemodynamically and electrically stable, with resolved subtle ST changes and no wall motion abnormalities on echo. No indication for urgent intervention but with clinical evidence of ischemia and risk factors is at high risk for adverse cardiac events going forward and would recommend risk stratification with cardiac catheterization. Discuss risks, benefits, alternatives of procedure with patient and her daughter. Patient is hesitant to undergo procedure. For now will plan to monitor on telemetry overnight. Will discuss procedure further in a.m.. If patient decline will consider continued medical management with additional risk stratification with stress test later hospitalization. For now: --start on heparin infusion. --continue to trend troponins --continue aspirin --start high-intensity statin --start low-dose beta-luca as heart rate allows --nitro paste started, p.r.n. hydralazine for blood pressure control as needed --keep NPO overnight Further recommendations pending discussion with the patient/family tomorrow If recurrent symptoms or becomes unstable overnight would plan to go to cardiac catheterization lab urgently.
[2017-01-23 20:46] LABS: CKMB/CK RATIO 7.7 (0-3.0)
[2017-01-23] MEDS: METOPROLOL TARTRATE 25 MG TAB PO SCH (21:18)
[2017-01-23 22:33] LABS: PARTIAL THROMBOPLASTIN RATIO 3.6
[2017-01-24] VITALS (14 sets, daily range): BP systolic 116–184; BP diastolic 63–90; PULSE 56–77; TEMP 36.4–37.1; O2SAT 92–96
[2017-01-24 02:19] LABS: CKMB/CK RATIO 6.2 (0-3.0)
[2017-01-24 05:19] LABS: PARTIAL THROMBOPLASTIN RATIO 2.5
[2017-01-24 05:23] LABS: CREATININE 1.6 mg/dl (0.60-1.20)
[2017-01-24 05:24] LABS: BUN/CREATININE RATIO 18.1 (10-20); CALCIUM 9.6 mg/dl (8.5-10.1); POTASSIUM 4.2 mmol/L (3.5-5.1)
[2017-01-24 05:27] LABS: CHOLESTEROL/HDL RATIO 4.5
[2017-01-24 05:31] LABS: CKMB/CK RATIO 6.1 (0-3.0)
[2017-01-24] MEDS: ASPIRIN 81 MG ECTAB PO SCH (08:51)
[2017-01-24] MEDS: METOPROLOL TARTRATE 25 MG TAB PO SCH ×3 (08:51→18:28)
[2017-01-24] MEDS: HydrALAZINE HCL 20 MG/ML VIAL IV. PRN (11:08)
--- NOTE | 2017-01-24 13:53 | Cardiology Follow-Up ---
Subjective Subjective Date of Service: Jan 24, 2017. Pt evaluation today including: conversation w/ patient, conversation w/ family , physical exam, chart review, lab review, review of studies, review of inpatient medication list Additional Details: No chest pain overnight. Feeling well this AM. No new complaints. Tele reviewed -- no events. Problem List Medical Problems: (1) Elevated troponin Status: Acute (2) Jaw pain Status: Acute (3) NSTEMI (non-ST elevated myocardial infarction) Status: Acute Review of Systems Constitutional: No fever, No chills Eyes: No worsening of vision ENT: No hearing loss Respiratory: No cough, No sputum Cardiac: No chest pain, No orthopnea Abdomen: No pain, No nausea Neurologic: No memory loss Psychiatric: No depression symptoms Heme: No abnormal bleeding/bruising Endo: No fatigue Skin: No rash Objective Vital Signs Last Vital Signs Documentation Date Time Temp Pulse Resp B/P (MAP) Pulse Ox O2 Delivery O2 Flow Rate FiO2 01/24/17 11:02 36.4 57 18 184/90 (121) 96 Room Air 01/23/17 20:00 96 Physical Exam: General Appearance: no apparent distress, + obese ENT: pharynx normal Neck: supple, no JVD Respiratory/Chest: lungs clear, normal breath sounds Cardiovascular: regular rate, rhythm, no edema, no murmur Abdomen: non tender, soft Extremities: no pedal edema, no calf tenderness Neurologic/Psychiatric: alert, normal mood/affect Skin: normal color, warm/dry, no rash Assessment and Plan 1. ACS/NSTEMI 2. Hypertension 3. Chronic kidney disease Patient remains chest pain free, hemodynamically and electrically stable. No wall motion abnormalities on Echo yesterday Troponin has continued to trend up slightly but rise of enzymes somewhat atypical for ACS. Suspicion whether could represent myopericarditis, or atypical stress-induced cardiomyopathy in the setting of CKD. Still with risk factors/presentation would recommend additional CAD risk stratification. Discussed this with patient and her daughter. At this time patient feels that she would not want to undergo cardiac cath under any circumstance unless acute life-threatening symptoms. For now will plan to continue to treat as an ACS event and manage medically. -- continue to trend troponin until peak -- continue heparin for total of 48 hrs. -- need better BP control, increase metoprolol to 25 mg bid, start DUC/ARB. continue nitropaste for now. -- continue ASA 81 mg daily. -- start statin -- If patient agreeable ideally would start plavix 300 mg x1, then 75 mg daily to reduce risk future adverse ASCVD events following NSTEMI -- If trop peaks, remains chest pain free potentially could go home after completion of heparin infusion. If recurrent pain would revisit cardiac cath. Medications: Current Inpatient Medications Medications (Trade) Dose Ordered Sig/Omaira Route Start Time Stop Time Status Last Admin Dose Admin Acetaminophen (Tylenol Tab) 650 mg Q4H PRN PO 01/23/17 14:00 02/22/17 13:59 Ondansetron HCl (Zofran Inj) 4 mg Q6H PRN IV 01/23/17 14:00 02/22/17 13:59 Nitroglycerin (Nitrostat Tab) 0.4 mg UD PRN SL 01/23/17 14:00 02/22/17 13:59 Morphine Sulfate (MoRPHine SULFATE INJ) 2 mg Q30M PRN IV 01/23/17 14:00 02/06/17 13:59 Aspirin (Ecotrin Tab) 81 mg QAM PO 01/24/17 09:00 02/23/17 08:59 01/24/17 08:51 81 MG Hydralazine HCl (HydrALAZINE INJ) 10 mg Q8H PRN IV. 01/23/17 14:45 02/22/17 14:44 01/24/17 11:08 10 MG Nitroglycerin (Nitroglycerin 2% Oint) 0.5 inch Q6H PRN EXT 01/23/17 15:15 02/22/17 15:14 Heparin Sodium (Porcine) 55683 unit/Dextrose 500 ml @ 21 mls/hr [id number] PRN IV 01/23/17 15:30 02/22/17 15:29 01/23/17 16:08 24 MLS/HR Metoprolol Tartrate (Lopressor Tab) 12.5 mg BID PO 01/23/17 21:00 02/22/17 20:59 01/24/17 08:51 12.5 MG Lab Results: 01/24/17 04:41 Test 01/23/17 16:33 01/24/17 04:41 Parathyroid Hormone (Intact) 73.9 pg/mL (11.1-79.5) Activated Partial Thromboplast Time 64.1 SECONDS (21.0-31.0) Partial Thromboplastin Ratio 2.5 Anion Gap 2.0 mmol/L (3-11) Est Creatinine Clear Calc Drug Dose 26.7 ml/min Estimated GFR () 33.2 Estimated GFR (Non- 28.7 BUN/Creatinine Ratio 18.1 (10-20) Calcium Level 9.6 mg/dl (8.5-10.1) Total Creatine Kinase 105 U/L (26-192) Creatine Kinase MB 6.4 ng/ml (0.5-3.6) Creatine Kinase MB Ratio 6.1 (0-3.0) Troponin I 1.990 ng/ml (0-0.045) Triglycerides Level 104 mg/dl (0-150) Cholesterol Level 208 mg/dl (0-200) HDL Cholesterol 46 mg/dl LDL Cholesterol, Calculated 141 mg/dl VLDL Cholesterol, Calculated 21 mg/dl Cholesterol/HDL Ratio 4.5
[2017-01-24] MEDS ORDERED: FENTANYL CITRATE INJ 50 MCG/1 ML 2 ML VIAL ONE (14:37)
[2017-01-24] MEDS ORDERED: NiCARDipine HCL INJ 2.5 MG/ML 10 ML AMP ONE (14:37)
[2017-01-24] MEDS ORDERED: HEPARIN SOD (PORCINE) 1000 UNIT/ML 10 ML VIAL ONE (14:37)
[2017-01-24] MEDS ORDERED: MIDAZOLAM HCL 1 MG/ML 2ML VIAL ONE (14:37)
[2017-01-24] MEDS ORDERED: NITROGLYCERIN/D5W 100MCG/ML 20ML SYR ONE (14:38)
[2017-01-24] MEDS ORDERED: NITROGLYCERIN/D5W 100 MCG/ML BTL ONE (16:40)
[2017-01-24] MEDS ORDERED: CLOPIDOGREL BISULFATE 300 MG TAB PO ONE (16:40)
[2017-01-24] MEDS ORDERED: SODIUM CHLORIDE 0.9% 1000ML 1,000 ML IV SCH (17:00)
[2017-01-24] MEDS ORDERED: NITROGLYCERIN/D5W 100 MCG/ML 250 ML IV SCH (17:00)
--- NOTE | 2017-01-24 17:04 | Procedure Note ---
Pre-Mod Sedation Assessment General Date of Moderate Sedation: Jan 24, 2017. Vital Signs: Vital Signs Past 12 Hours Date Time Temp Pulse Resp B/P (MAP) Pulse Ox O2 Delivery O2 Flow Rate FiO2 01/24/17 16:54 59 16 170/86 (114) 95 Room Air 01/24/17 16:39 58 16 175/80 (111) 95 Room Air 01/24/17 13:49 36.6 77 18 160/79 (106) 96 Room Air 01/24/17 12:00 Room Air 01/24/17 11:02 36.4 57 18 184/90 (121) 96 Room Air 01/24/17 08:00 Room Air 01/24/17 07:32 36.6 56 18 179/75 (109) 92 Room Air Review Cardiovascular: regular rate, rhythm, no edema Abdomen: normal bowel sounds, non tender Lungs: chest non-tender, normal breath sounds Airway Class: III Pre-Sedation Airway Assessment Oral Cavity: WNL Able to Visualize Vocal Cords: No Short Thick Neck: No Smoking Status: Never Smoker Mallampati Classification: Class III ASA Classification: Class III Procedure Planning Contraindications-for Mod Sed: None Yes Notes The planned sedation has been discussed with the patient and consent obtained. I have identified the patient, determined the appropriateness of sedation and have assessed the patient immediately prior to the procedure. All medicine(s) and interventions are by my order.
--- NOTE | 2017-01-24 17:05 | Procedure Note ---
Post-Mod Sedation Assessment General Date of Moderate Sedation Jan 24, 2017. Vital Signs: Vital Signs Past 12 Hours Date Time Temp Pulse Resp B/P (MAP) Pulse Ox O2 Delivery O2 Flow Rate FiO2 01/24/17 16:54 59 16 170/86 (114) 95 Room Air 01/24/17 16:39 58 16 175/80 (111) 95 Room Air 01/24/17 13:49 36.6 77 18 160/79 (106) 96 Room Air 01/24/17 12:00 Room Air 01/24/17 11:02 36.4 57 18 184/90 (121) 96 Room Air 01/24/17 08:00 Room Air 01/24/17 07:32 36.6 56 18 179/75 (109) 92 Room Air Review - Discharge Criteria Vital Signs Stable: Yes Alert/Oriented/Conversant: Yes Returned to Baseline Mental St: Yes Nausea Absent/Minimal: Yes Pain/Discomfort/Absent/Minimal: Yes Normal/Baseline Respirations: Yes Active Bleeding?: No Pt Received D/C Instructions: N/A Prescriptions Given: None Specific Proced. D/C Criteria Distal Pulses Present (Cardiac: Yes Groin site assessed-Card Cath: N/A Voided Prior To Discharge: N/A Discharged Patients Adult Escort/Transportation: Yes
--- NOTE | 2017-01-24 17:45 | Cardiac Catheterization ---
Procedure Note Procedure Date Jan 24, 2017. Pre-Procedure Diagnosis STEMI AUC Score 9 Post-Procedure Diagnosis Severe CAD, Successful PCI, Normal Intracardiac Pressures Procedure(s) Performed Coronary Angiography, Left Heart Cath, Bare Metal Stent Laundry Press Operator Jesus Ad Copy Writer(s) Roberth Estimated Blood Loss 20 Medication(s) Clopidogrel, Fentanyl, Heparin, Nicardipine, Nitroglycerin, Versed, Lidocaine 1% Summary of Findings Indication: ACS initially medically managed then with recurrent symptoms and Inferior ST elevations. Access: 6Fr Right Radial Artery Catheters: [place]; JR4 guide, EBU 3.5 Findings: LM - Luminal irregularities LAD - Mild to moderate diffuse proximal disease, focal 95+% stenosis in mid LAD just after take-off of large 1st septal; remainder of LAD with luminal irregularities as wraps around apex. Small 1st diagonal with 70% proximal disease. Circumflex - Large vessel, proximal luminal irregularities, 90% stenosis in distal circumflex prior to take-off of large OM3. Small OM2 with 70% proximal disease; OM3 with luminal irregularities. RCA - Dominant, large caliber vessel, mild proximal disease, 99% mid disease immediately followed by an aneurysmal segment with thrombus and a second 95% stenosis; distal RCA, R-PDA, R-PLBs with distal luminal irregularities. LVEDP - 10 -- PCI -- Antithrombotic therapy: Heparin, Clopidogrel Procedure: RCA cannulated with JR4 guide Signaling Design Engineer 50 wire passed across lesion into distal vessel Mid RCA lesion predilated with 3.0 compliant balloon Dilated lesion stented with 4.0 x 22 Integrity BMS Stent post-dilated with 4.5 noncompliant balloon IC vasodilators administered for spasm/distal thrombus emboli Post procedure LUCRETIA 3 flow, stent well expanded with minimal residual stenosis and no apparent cardiac complications. LM cannulated with EBU 3.5 guide Signaling Design Engineer 50 wire placed in distal LAD LAD lesion predilated with 3.0 balloon. Lesion stented with 3.5 x 30 Integrity BMS Stent post-dilated with 4.0 NC balloon. Wire removed from LAD and placed across distal circumflex lesion into OM3 Circumflex stenosis predilated with 3.0 balloon. Dilated lesion stented with 3.5 x 15 Integrity BMS, post-dilated with stent balloon. Arterial Closure: TR Band Summary: 1. Severe 3 vessel coronary artery disease - 99% mid RCA with thrombus (acute culprit lesion) - 95% mid LAD - 90% distal circumflex 2. Normal intracardiac filling pressure 3. Successful multivessel PCI of mid RCA with 4.0 x 22 BMS, mid LAD with 3.5 x 30 BMS, and distal circumflex with 3.5 x 15 BMS. Recommendations: To PCU for continued monitoring IV fluids overnight, follow-up creatinine in AM. Can discontinue heparin drip. Loaded with Clopidogrel 600 mg in cathode washer Continue dual-antiplatelet therapy with ASA/Clopidogrel for at least 1 month ( BMS chosen due to patients stated preference not to avoid taking medicines) Start high-intensity statin Continue beta-luca Continue on nitroglycerin infusion overnight Add amlodipine 10mg in AM. Consult cardiac Rehab Hemodynamics Rest Ao: 139/62/93 Final Ao: 184/80/123 LV: 142/10 Recommendations PCI without planned CABG Specimens None Radiation Exposure (mGy) 3681 Contrast (mls) 175 Visi Fluids (cc crystalloids) 900 Drains None Anesthesia Moderate (14:52 - 16:39) Procedural Complication(s) None Disposition PCU ACC Data Cardiac Status Clinical evaluation leading to the procedure CAD Presntation: Non STEMI Anginal Classification: CCS IV Heart Failure: No, NYHA Class: CCS I Cardiogenic Shock w/in 24Hrs: No Cardiac Arrest w/in 24Hrs: No Imaging studies past 6 months: Yes Stress studies past 6 months: No Standard Exercise Stress Test: No Stress Echocardiogram: No Coronary Anatomy Dominant: Right Left Main (% Stenosis): Normal LAD (% Stenosis): Mid (95) Circumflex (% Stenosis): Distal (90) OM2 (% Stenosis): Proximal (70) RCA (% Stenosis): Mid (99) Diagnostic Physician's Name: Josue Lee MD Status: Urgent Closure Device Percutaneous Entry Location: Radial Closure Device: Radial Band Recommendations: PCI without planned CABG PCI Indication: PCI for high risk Non-STEMI Lesion Segment Name: mid RCA Culprit Artery: Yes Stenosis Prior to Rx (%): 99 IVUS: No FFR: No Pre-Procedure LUCRETIA Flow: 3 Previously Treated Lesion: No Lesion Complexity: Non-High/Non-C Lesion Length (mm): 20 Thrombus Present: Yes Bifurcation Lesion: No Guidewire Across Lesion: Yes Guidewire: Post-Procedure LUCRETIA Flow: 3 Device(s) Deployed: Yes Lesion #2 Segment Name: mid LAD Culprit Artery: No Stenosis Prior to Rx (%): 95 Chronic Total Occlusion: No IVUS: No FFR: No Pre-Procedure LUCRETIA Flow: 3 Previously Treated Lesion: No Lesion Complexity: Non-High/Non-C Lesion Length (mm): 20 Thrombus Present: No Bifurcation Lesion: No Guidewire Across Lesion: Yes Guidewire: Stenosis Post-Procedure (%): 0 Post-Procedure LUCRETIA Flow: 3 Device(s) Deployed: Yes Intraprocedure Events Significant Dissection: No Perforation: No
--- NOTE | 2017-01-24 18:08 | Hospitalist Progress Note ---
Hospitalist Progress Note Date of Service Jan 24, 2017. Subjective Pt evaluation today including: conversation w/ patient, conversation w/ family , physical exam Pain: NONE Patient had no complaints at the time of service...I saw her this morning prior to cath. Medications _ Medications (Trade) Dose Ordered Sig/Omaira Route Start Time Stop Time Status Last Admin Dose Admin Aspirin (Ecotrin Tab) 81 mg QAM PO 01/24/17 09:00 02/23/17 08:59 01/24/17 08:51 81 MG Metoprolol Tartrate (Lopressor Tab) 12.5 mg BID PO 01/23/17 21:00 01/24/17 17:46 DC 01/24/17 08:51 12.5 MG Heparin Sodium (Porcine) (Heparin Iv Bolus) 10,000 unit STK-MED ONCE .ROUTE 01/24/17 14:37 01/24/17 14:38 DC 01/24/17 14:37 10,000 UNIT Fentanyl Citrate (Fentanyl Inj) 100 mcg STK-MED ONCE .ROUTE 01/24/17 14:37 01/24/17 14:38 DC 01/24/17 14:37 100 MCG Midazolam HCl (Versed Inj) 2 mg STK-MED ONCE .ROUTE 01/24/17 14:37 01/24/17 14:38 DC 01/24/17 14:37 1 MG Nitroglycerin/ Dextrose (Nitroglycerin/ D5w 100 Mcg/Ml) 25 mg STK-MED ONCE .ROUTE 01/24/17 16:40 01/24/17 16:41 DC 01/24/17 16:44 25 MG Clopidogrel Bisulfate (plAVix TAB) 600 mg STK-MED ONCE PO 01/24/17 16:40 01/24/17 16:41 DC 01/24/17 16:44 600 MG Objective Vital Signs Date Time Temp Pulse Resp B/P (MAP) Pulse Ox O2 Delivery O2 Flow Rate FiO2 01/24/17 16:54 59 16 170/86 (114) 95 Room Air 01/24/17 16:39 58 16 175/80 (111) 95 Room Air 01/24/17 13:49 36.6 77 18 160/79 (106) 96 Room Air 01/24/17 12:00 Room Air 01/24/17 11:02 36.4 57 18 184/90 (121) 96 Room Air 01/24/17 08:00 Room Air 01/24/17 07:32 36.6 56 18 179/75 (109) 92 Room Air 01/24/17 04:19 37.1 57 18 153/82 (105) 94 Room Air 01/24/17 04:00 Room Air 01/24/17 00:11 37.1 56 18 135/65 (88) 96 Room Air 01/23/17 23:59 Room Air 01/23/17 20:19 36.6 64 20 150/70 (96) 96 Room Air 01/23/17 20:00 Room Air 96 Physical Exam General Appearance: no apparent distress Eyes: normal inspection ENT: hearing grossly normal Neck: supple Respiratory/Chest: lungs clear Cardiovascular: regular rate, rhythm Abdomen: normal bowel sounds Extremities: normal range of motion Neurologic/Psychiatric: no motor/sensory deficits, alert Laboratory Results Last 24 Hours Test 01/23/17 19:44 01/23/17 21:55 01/24/17 01:40 01/24/17 04:41 Total Creatine Kinase 115 U/L 114 U/L 105 U/L Creatine Kinase MB 8.8 ng/ml 7.1 ng/ml 6.4 ng/ml Creatine Kinase MB Ratio 7.7 6.2 6.1 Troponin I 1.660 ng/ml 1.870 ng/ml 1.990 ng/ml Activated Partial Thromboplast Time 92.8 SECONDS 64.1 SECONDS Partial Thromboplastin Ratio 3.6 2.5 Sodium Level 141 mmol/L Potassium Level 4.2 mmol/L Chloride Level 110 mmol/L Carbon Dioxide Level 29 mmol/L Anion Gap 2.0 mmol/L Blood Urea Nitrogen 29 mg/dl Creatinine 1.60 mg/dl Est Creatinine Clear Calc Drug Dose 26.7 ml/min Estimated GFR () 33.2 Estimated GFR (Non- 28.7 BUN/Creatinine Ratio 18.1 Random Glucose 95 mg/dl Calcium Level 9.6 mg/dl Triglycerides Level 104 mg/dl Cholesterol Level 208 mg/dl HDL Cholesterol 46 mg/dl LDL Cholesterol, Calculated 141 mg/dl VLDL Cholesterol, Calculated 21 mg/dl Cholesterol/HDL Ratio 4.5 Test 01/24/17 13:52 01/24/17 16:16 Creatine Kinase MB Ratio Kaolin Activated Coagulation Time 268 SECONDS Assessment and Plan (1) NSTEMI (non-ST elevated myocardial infarction) Assessment & Plan: Patient seen and case discussed with the patient and her daughter. Pathophysiology of CAD was explained in detail for her to understand why at a minimum medical management would include aspirin, statin and bblocker. I than discussed the possibility of Cath and agioplasty with stenting if needed. The patient listened and asked appropriate questions and later in the day when she started having jaw pain with ekg changes agreed to cath where triple vessel disease was discovered and intervened with angioplasty and stents. Will continue to follow and support the patient. (2) Advance care planning Assessment & Plan: Patient does not want to be brought back to life. Order written. Discussed in the presence of her daughter. (3) HTN (hypertension) will adjust bp meds.
[2017-01-24 19:25] LABS: CKMB/CK RATIO 6.7 (0-3.0)
[2017-01-24] MEDS: ACETAMINOPHEN 325 MG TAB PO PRN (19:25)
[2017-01-25] VITALS (8 sets, daily range): BP systolic 129–209; BP diastolic 55–99; PULSE 60–84; TEMP 36.5–37.2; O2SAT 91–98
[2017-01-25 06:52] LABS: BASO % 0.5 %; BASO ABS # 0.04 K/uL (0-0.2); COMPLETE YES; EOS % 2.8 %; HEMATOCRIT 33.2 % (37-47); IG% 0.2 %; LYMPH % 12.8 %; LYMPH ABS # 1.05 K/uL (1.2-3.4); MEAN CELL VOLUME 91.5 fL (80-100); MEAN CORPUSCULAR HEMOGLOBIN 30.3 pg (25-34); MEAN CORPUSCULAR HGB CONC 33.1 g/dl (32-36); MEAN PLATELET VOLUME 10.6 fL (7.4-10.4); MONO % 9.5 %; NEUT % 74.2 %; PLATELET COUNT 241 K/uL (130-400); RED BLOOD COUNT 3.63 M/uL (4.2-5.4); WHITE BLOOD COUNT 8.22 K/uL (4.8-10.8)
[2017-01-25 07:25] LABS: BUN/CREATININE RATIO 16.5 (10-20); CALCIUM 8.8 mg/dl (8.5-10.1); CREATININE 1.5 mg/dl (0.60-1.20); POTASSIUM 4.1 mmol/L (3.5-5.1)
[2017-01-25] MEDS: ONDANSETRON INJ 2 MG/ML 2 ML VIAL IV PRN ×2 (08:11→08:14)
[2017-01-25] MEDS: ASPIRIN 81 MG ECTAB PO SCH (09:24)
[2017-01-25] MEDS: METOPROLOL TARTRATE 25 MG TAB PO SCH ×2 (09:25→20:43)
[2017-01-25] MEDS: ATORVASTATIN 40 MG TAB PO SCH (09:25)
[2017-01-25] MEDS: CLOPIDOGREL BISULFATE 75 MG TAB PO SCH (09:25)
[2017-01-25] MEDS: ACETAMINOPHEN 325 MG TAB PO PRN (09:26)
--- NOTE | 2017-01-25 11:55 | Hospitalist Progress Note ---
Hospitalist Progress Note Date of Service Jan 25, 2017. Subjective Pt evaluation today including: conversation w/ patient Pain: no chest pain no complaints no chest pain no shortness of breath All Other Systems: Reviewed and Negative Objective Vital Signs Date Time Temp Pulse Resp B/P (MAP) Pulse Ox O2 Delivery O2 Flow Rate FiO2 01/25/17 11:07 36.7 60 18 129/64 (85) 91 Room Air 01/25/17 08:00 Room Air 01/25/17 07:31 36.7 68 18 151/68 (95) 93 Room Air 01/25/17 04:10 148/70 (96) 01/25/17 04:00 Room Air 01/25/17 03:39 37.0 75 18 165/77 (106) 93 Room Air 01/24/17 23:59 Room Air 01/24/17 23:48 36.7 56 18 138/73 (94) 92 Room Air 01/24/17 20:00 Room Air 01/24/17 19:55 36.5 62 18 130/72 (91) 94 Room Air 01/24/17 19:45 59 18 130/72 (91) 01/24/17 18:45 63 18 136/71 (92) 01/24/17 18:15 57 18 141/69 (93) 01/24/17 17:45 58 18 116/71 (86) 01/24/17 17:30 61 18 138/63 (88) 01/24/17 17:15 57 18 140/66 (90) 01/24/17 17:00 63 18 137/79 (98) 01/24/17 17:00 Room Air 01/24/17 16:54 59 16 170/86 (114) 95 Room Air 01/24/17 16:39 58 16 175/80 (111) 95 Room Air 01/24/17 13:49 36.6 77 18 160/79 (106) 96 Room Air 01/24/17 12:00 Room Air Physical Exam General Appearance: no apparent distress ENT: hearing grossly normal Neck: trachea midline Respiratory/Chest: lungs clear Cardiovascular: regular rate, rhythm Abdomen: normal bowel sounds Extremities: normal range of motion Neurologic/Psychiatric: alert Laboratory Results Last 24 Hours Test 01/24/17 16:16 01/24/17 18:02 01/25/17 06:06 Kaolin Activated Coagulation Time 268 SECONDS Total Creatine Kinase 99 U/L Creatine Kinase MB 6.6 ng/ml Creatine Kinase MB Ratio 6.7 Troponin I 1.800 ng/ml White Blood Count 8.22 K/uL Red Blood Count 3.63 M/uL Hemoglobin 11.0 g/dL Hematocrit 33.2 % Mean Corpuscular Volume 91.5 fL Mean Corpuscular Hemoglobin 30.3 pg Mean Corpuscular Hemoglobin Concent 33.1 g/dl Platelet Count 241 K/uL Mean Platelet Volume 10.6 fL Neutrophils (%) (Auto) 74.2 % Lymphocytes (%) (Auto) 12.8 % Monocytes (%) (Auto) 9.5 % Eosinophils (%) (Auto) 2.8 % Basophils (%) (Auto) 0.5 % Neutrophils # (Auto) 6.10 K/uL Lymphocytes # (Auto) 1.05 K/uL Monocytes # (Auto) 0.78 K/uL Eosinophils # (Auto) 0.23 K/uL Basophils # (Auto) 0.04 K/uL RDW Standard Deviation 48.2 fL RDW Coefficient of Variation 14.3 % Immature Granulocyte % (Auto) 0.2 % Immature Granulocyte # (Auto) 0.02 K/uL Activated Partial Thromboplast Time 26.6 SECONDS Partial Thromboplastin Ratio 1.0 Sodium Level 141 mmol/L Potassium Level 4.1 mmol/L Chloride Level 112 mmol/L Carbon Dioxide Level 25 mmol/L Anion Gap 4.0 mmol/L Blood Urea Nitrogen 25 mg/dl Creatinine 1.50 mg/dl Est Creatinine Clear Calc Drug Dose 29.1 ml/min Estimated GFR () 35.9 Estimated GFR (Non- 31.0 BUN/Creatinine Ratio 16.5 Random Glucose 83 mg/dl Calcium Level 8.8 mg/dl Assessment and Plan (1) NSTEMI (non-ST elevated myocardial infarction) Assessment & Plan: stent times 3 for triple vessel disease....doing well. LIAT lange (2) Advance care planning Assessment & Plan: DNR (3) HTN (hypertension) Assessment & Plan: BP well controlled will adjust bp meds. Discharge planning: home
[2017-01-25] MEDS: HydrALAZINE HCL 20 MG/ML VIAL IV. PRN (17:25)
--- NOTE | 2017-01-25 21:14 | Cardiology Follow-Up ---
Subjective Subjective Date of Service: Jan 25, 2017. Pt evaluation today including: conversation w/ patient, conversation w/ family , physical exam, chart review, lab review, review of studies, review of inpatient medication list Additional Details: Feeling well, no chest pain, no shortness of breath. Mild soreness at right radial artery access site. tele reviewed - no events. Problem List Medical Problems: (1) Elevated troponin Status: Acute (2) Jaw pain Status: Acute (3) NSTEMI (non-ST elevated myocardial infarction) Status: Acute Review of Systems Constitutional: No fever, No chills Eyes: No worsening of vision ENT: No hearing loss Respiratory: No cough, No sputum Cardiac: No chest pain, No orthopnea Abdomen: No pain, No nausea Neurologic: No memory loss Psychiatric: No depression symptoms Heme: No abnormal bleeding/bruising Endo: No fatigue Skin: No rash Objective Vital Signs Last Vital Signs Documentation Date Time Temp Pulse Resp B/P (MAP) Pulse Ox O2 Delivery O2 Flow Rate FiO2 01/25/17 16:06 36.5 63 20 205/99 (134) 98 Room Air 209/91 (130) 01/23/17 20:00 96 Physical Exam: General Appearance: no apparent distress ENT: hearing grossly normal Neck: trachea midline Respiratory/Chest: lungs clear Cardiovascular: regular rate, rhythm Abdomen: normal bowel sounds Extremities: normal range of motion, + pertinent finding (Palpable right radial pulse, no ecchymosis/hematoma. intact distal sensation. ) Neurologic/Psychiatric: alert Skin: normal color, warm/dry, no rash Assessment and Plan 1. ACS/NSTEMI 2. Severe 3 vessel coronary artery disease -- post multivessel stenting 3. Chronic kidney disease 4. Hypertension Patient doing well post procedure. No recurrent chest pain. No access site complications. Renal function stable. -- continue DAPT with ASA/Plavix -- continue metoprolol 25 --> titrate up as HR allows -- start DUC tomorrow pending stable SCr -- continue high intensity statin. If stable overnight possible discharge tomorrow AM. Discharge planning: home Medications: Current Inpatient Medications Medications (Trade) Dose Ordered Sig/Omaira Route Start Time Stop Time Status Last Admin Dose Admin Nitroglycerin (Nitrostat Tab) 0.4 mg UD PRN SL 01/23/17 14:00 02/22/17 13:59 Morphine Sulfate (MoRPHine SULFATE INJ) 2 mg Q30M PRN IV 01/23/17 14:00 02/06/17 13:59 Aspirin (Ecotrin Tab) 81 mg QAM PO 01/24/17 09:00 02/23/17 08:59 01/25/17 09:24 81 MG Hydralazine HCl (HydrALAZINE INJ) 10 mg Q8H PRN IV. 01/23/17 14:45 02/22/17 14:44 01/24/17 11:08 10 MG Nitroglycerin (Nitroglycerin 2% Oint) 0.5 inch Q6H PRN EXT 01/23/17 15:15 02/22/17 15:14 Ondansetron HCl (Zofran Inj) 4 mg Q6H PRN IV 01/24/17 17:00 02/23/17 16:59 01/25/17 08:14 4 MG Clopidogrel Bisulfate (plAVix TAB) 75 mg QAM PO 01/25/17 09:00 02/24/17 08:59 01/25/17 09:25 75 MG Atorvastatin Calcium (Lipitor Tab) 40 mg QAM PO 01/25/17 09:00 02/24/17 08:59 01/25/17 09:25 40 MG Acetaminophen (Tylenol Tab) 650 mg Q4H PRN PO 01/24/17 17:00 02/23/17 16:59 01/25/17 09:26 650 MG Nitroglycerin/ Dextrose 250 ml @ 0 mls/hr Q0M IV 01/24/17 17:00 02/23/17 16:59 Metoprolol Tartrate (Lopressor Tab) 25 mg BID PO 01/24/17 18:14 02/22/17 18:13 01/25/17 09:25 25 MG Lab Results: 01/25/17 06:06 Red Blood Count 3.63, Mean Corpuscular Volume 91.5, Mean Corpuscular Hemoglobin 30.3, Mean Corpuscular Hemoglobin Concent 33.1, Mean Platelet Volume 10.6, Neutrophils (%) (Auto) 74.2, Lymphocytes (%) (Auto) 12.8, Monocytes (%) (Auto) 9.5, Eosinophils (%) (Auto) 2.8, Basophils (%) (Auto) 0.5, Neutrophils # (Auto) 6.10, Lymphocytes # (Auto) 1.05, Monocytes # (Auto) 0.78, Eosinophils # (Auto) 0.23, Basophils # (Auto) 0.04 01/25/17 06:06 Test 01/24/17 18:02 01/25/17 06:06 Total Creatine Kinase 99 U/L (26-192) Creatine Kinase MB 6.6 ng/ml (0.5-3.6) Creatine Kinase MB Ratio 6.7 (0-3.0) Troponin I 1.800 ng/ml (0-0.045) White Blood Count 8.22 K/uL (4.8-10.8) Red Blood Count 3.63 M/uL (4.2-5.4) Hemoglobin 11.0 g/dL (12.0-16.0) Hematocrit 33.2 % (37-47) Mean Corpuscular Volume 91.5 fL (80-100) Mean Corpuscular Hemoglobin 30.3 pg (25-34) Mean Corpuscular Hemoglobin Concent 33.1 g/dl (32-36) Platelet Count 241 K/uL (130-400) Mean Platelet Volume 10.6 fL (7.4-10.4) Neutrophils (%) (Auto) 74.2 % Lymphocytes (%) (Auto) 12.8 % Monocytes (%) (Auto) 9.5 % Eosinophils (%) (Auto) 2.8 % Basophils (%) (Auto) 0.5 % Neutrophils # (Auto) 6.10 K/uL (1.4-6.5) Lymphocytes # (Auto) 1.05 K/uL (1.2-3.4) Monocytes # (Auto) 0.78 K/uL (0.11-0.59) Eosinophils # (Auto) 0.23 K/uL (0-0.5) Basophils # (Auto) 0.04 K/uL (0-0.2) RDW Standard Deviation 48.2 fL (36.4-46.3) RDW Coefficient of Variation 14.3 % (11.5-14.5) Immature Granulocyte % (Auto) 0.2 % Immature Granulocyte # (Auto) 0.02 K/uL (0.00-0.02) Activated Partial Thromboplast Time 26.6 SECONDS (21.0-31.0) Partial Thromboplastin Ratio 1.0 Anion Gap 4.0 mmol/L (3-11) Est Creatinine Clear Calc Drug Dose 29.1 ml/min Estimated GFR () 35.9 Estimated GFR (Non- 31.0 BUN/Creatinine Ratio 16.5 (10-20) Calcium Level 8.8 mg/dl (8.5-10.1)
[2017-01-26 03:16] VITALS: BP 164/85; PULSE 70; TEMP 36.9; O2SAT 95
[2017-01-26 06:06] LABS: BASO % 0.6 %; BASO ABS # 0.04 K/uL (0-0.2); COMPLETE YES; EOS % 4.1 %; HEMATOCRIT 33.4 % (37-47); IG% 0.5 %; LYMPH % 15.4 %; LYMPH ABS # 1.02 K/uL (1.2-3.4); MEAN CELL VOLUME 92.8 fL (80-100); MEAN CORPUSCULAR HEMOGLOBIN 30.3 pg (25-34); MEAN CORPUSCULAR HGB CONC 32.6 g/dl (32-36); MEAN PLATELET VOLUME 10.7 fL (7.4-10.4); MONO % 11.3 %; NEUT % 68.1 %; PLATELET COUNT 214 K/uL (130-400); WHITE BLOOD COUNT 6.64 K/uL (4.8-10.8)
[2017-01-26 06:31] LABS: BUN/CREATININE RATIO 14.9 (10-20); CALCIUM 9.1 mg/dl (8.5-10.1); CREATININE 1.6 mg/dl (0.60-1.20); POTASSIUM 4.4 mmol/L (3.5-5.1)
[2017-01-26 06:32] LABS: PARTIAL THROMBOPLASTIN RATIO 1.1
[2017-01-26 07:39] VITALS: BP 162/74; PULSE 60; TEMP 37.1; O2SAT 93
[2017-01-26] MEDS: ASPIRIN 81 MG ECTAB PO SCH (08:14)
[2017-01-26] MEDS: ATORVASTATIN 40 MG TAB PO SCH (08:14)
[2017-01-26] MEDS: METOPROLOL TARTRATE 25 MG TAB PO SCH (08:14)
[2017-01-26] MEDS: CLOPIDOGREL BISULFATE 75 MG TAB PO SCH (08:15)
[2017-01-26] MEDS ORDERED: LISINOPRIL 5 MG TAB PO ONE (11:00)
[2017-01-26 11:04] VITALS: BP 138/69; PULSE 57; TEMP 37; O2SAT 94
[2017-01-26] MEDS ORDERED: LSN5 PO (13:42)
[2017-01-26] MEDS ORDERED: PLV75 PO (13:42)
[2017-01-26] MEDS ORDERED: ASPEC81 PO (13:42)
[2017-01-26] MEDS ORDERED: NTRSLP4 SL (13:42)
[2017-01-26] MEDS ORDERED: LPR25 PO (13:42)
[2017-01-26] MEDS ORDERED: LPT40 PO (13:42)
--- NOTE | 2017-01-26 13:45 | Discharge Instructions ---
Discharge Instructions Date of Service Jan 26, 2017. Admission Reason for Admission: Nstemi (Non-St Elevated Myocardial Infraction) Discharge Discharge Diagnosis / Problem: Myocardial Infarction Discharge Goals Goal(s): Improve function Activity Recommendations Activity Limitations: per Instructions/Follow-up section Exercise/Sports Limitations: as tolerated . Instructions / Follow-Up Instructions / Follow-Up Dr. Santillan 1 week will need bmp for new kareem. Dr. Lee in 2-4 weeks. Current Hospital Diet Patient's current hospital diet: AHA Diet (Heart Healthy) Discharge Diet Recommended Diet: AHA Diet (Heart Healthy) Pending Studies Studies pending at discharge: no Laboratory Results Lipid Panel Test 01/24/17 04:41 Range/Units Triglycerides Level 104 0-150 mg/dl Cholesterol Level 208 H 0-200 mg/dl HDL Cholesterol 46 mg/dl Cholesterol/HDL Ratio 4.5 LDL Cholesterol, Calculated 141 mg/dl Medical Emergencies . Who to Call and When: Medical Emergencies: If at any time you feel your situation is an emergency, please call 911 immediately. . Non-Emergent Contact Non-Emergency issues call your: Primary Care Provider . Past History Medical & Surgical History: (1) NSTEMI (non-ST elevated myocardial infarction) (2) HTN (hypertension) (3) Advance care planning . "Provider Documentation" section prepared by Az Chow. . VTE Core Measure Inpt VTE Proph given/why not?: Unfractionated heparin SQ
[2017-01-26 14:21] VITALS: BP 138/69; PULSE 57; TEMP 37; O2SAT 94
--- NOTE | 2017-02-08 06:15 | DISCHARGE SUMMARY ---
Please see dictated H and P for full details of presentation. HISTORY OF PRESENT ILLNESS: The patient is an 86-year-old female who has a history of hypertension, stage III kidney disease and started having left-sided jaw pain, diaphoresis and nausea. At 6 p.m. the night of her admission, she developed jaw pain at rest. Pain persisted until she went to bed, and subsequently she was able to fall asleep. She awoke with residual jaw pain and presented to her regular doctor and was sent to the Emergency Room. She was hypertensive in the 220s. EKG showed ST elevations inferiorly which resolved on subsequent EKG. Her troponin was positive at 1.5. She was brought into telemetry and case was discussed with the patient and her daughter. Cardiology was consulted. Recommendations were for heparin infusion, continued trending of troponins and aspirin with high-intensity statin. On hospital day #2, the patient's troponin went to 1.8 and 1.9, and symptoms returned and she was taken [facility] by Dr. Josue Lee. At the time, the patient was discovered to have mild to moderate diffuse proximal disease in the LAD, focal LAD stenosis 95% in the mid LAD and a small first diagonal 70% proximal disease. Circumflex had 90% stenosis in the distal circumflex and a small OM2 70% proximal disease. The right coronary artery was dominant and 99% mid disease immediately followed by an aneurysm segment with thrombus and a second 95% stenosis. Diagnosis was severe triple-vessel coronary artery disease, successful multi-vessel percutaneous intervention of the mid RCA with 4 x 22 bare metal stent and a mid LAD 3.5 x 30 bare metal stent and a distal circumflex with 3.5 x15 bare metal stent. The patient did extremely well, was placed on Plavix and aspirin, statin therapy and amlodipine. She had an otherwise uncomplicated hospital course. All the medications were explained to the patient and her daughter. DISCHARGE MEDICATIONS: She was discharged on aspirin 81 mg daily, Lipitor 40 mg daily, Plavix 75 daily, lisinopril 5 daily, metoprolol 25 twice a day and sublingual nitro 0.4 mg every 5 minutes as needed for chest pain. Ejection fraction on echocardiogram was 60-65%. Grade 1 diastolic dysfunction was discovered. No significant valvular disease was seen. Time spent in review of the chart, discussion with the patient on the day of discharge was 31 minutes.
== END 2017-01-26 16:01 | disposition home or self-care (01) | DRG 249 ==
LOC: C.EDB 11:32 → C.2E 13:57 → ENRESERV 14:15
PROVIDERS: ADMIT Family Medicine; ATTEND Family Medicine
PROC: 02723FZ Dilation of Coronary Artery, Three Arteries with Three Intraluminal Devices, Percutaneous Approach (ICD-10-PCS; principal; 2017-01-24 14:53)
DX: I21.4 Non-ST elevation (NSTEMI) myocardial infarction (principal); I12.9 Hypertensive chronic kidney disease with stage 1 through stage 4 chronic kidney disease, or unspecified chronic kidney disease; N18.3 Chronic kidney disease, stage 3 (moderate); Z82.49 Family history of ischemic heart disease and other diseases of the circulatory system; E83.52 Hypercalcemia; Z66 Do not resuscitate

== ENCOUNTER → 2017-02-15 | Outpatient (CLI) | payer BC ==
[~2017-02-15] MED LIST: ASPEC81 PO; LPR25 PO; LPT40 PO; LSN5 PO; MULT60CA PO; NTRSLP4 SL; PLV75 PO
[2017-02-15 09:58] LABS: BLOOD UREA NITROGEN 30 mg/dl (7-18); BUN/CREATININE RATIO 17.4 (10-20); CALCIUM 9.7 mg/dl (8.5-10.1); CARBON DIOXIDE 26 mmol/L (21-32); CHLORIDE 109 mmol/L (98-107); GLUCOSE 87 mg/dl (70-99); POTASSIUM 4.5 mmol/L (3.5-5.1); SODIUM 140 mmol/L (136-145)
== END | disposition home or self-care (01) ==
LOC: C.LAB1850 08:56
PROVIDERS: ATTEND Internal Medicine Interventional Cardiology
DX: I10 Essential (primary) hypertension (principal)

== ENCOUNTER → 2017-07-23 | Outpatient (CLI) | payer BC ==
[2017-07-23 12:48] LABS: ALBUMIN 3.9 gm/dl (3.4-5.0); BLOOD UREA NITROGEN 32 mg/dl (7-18); CALCIUM 9.7 mg/dl (8.5-10.1); CARBON DIOXIDE 27 mmol/L (21-32); CREATININE 1.58 mg/dl (0.60-1.20); GLUCOSE 94 mg/dl (70-99); POTASSIUM 4.5 mmol/L (3.5-5.1); SODIUM 139 mmol/L (136-145)
[2017-07-23 12:49] LABS: PHOSPHORUS 3.5 mg/dl (2.5-4.9)
== END | disposition home or self-care (01) ==
LOC: C.LAB1850 10:15
PROVIDERS: ATTEND Internal Medicine Nephrology
DX: N18.3 Chronic kidney disease, stage 3 (moderate) (principal)

== ENCOUNTER → 2017-08-07 | Outpatient (CLI) | payer BC | END | disposition home or self-care (01) | LOC: C.LAB1850 10:49 | PROVIDERS: ATTEND Internal Medicine Nephrology | DX: I10 Essential (primary) hypertension (principal) ==

== ENCOUNTER → 2017-08-20 | Outpatient (CLI) | payer BC ==
--- NOTE | 2017-08-20 15:29 | DIAGNOSTIC IMAGING REPORT ---
DOPPLER ULTRASOUND OF THE RENAL ARTERIES CLINICAL HISTORY: Resistant hypertension. COMPARISON STUDY: No previous studies for comparison. FINDINGS: The right kidney measures 9.3 cm in maximal dimension and the left measures 11.1 cm. Mild to moderate bilateral hydronephrosis is noted. There is moderate renal cortical thinning. The bilateral renal arteries and veins are patent. No elevated velocities were identified on this examination. Note was made of a 4.7 cm infrarenal abdominal aortic aneurysm. There is also an apparent 16.8 x 9 x 15.4 cm left lower quadrant/left flank echogenic mass. IMPRESSION: 1. No sonographic evidence of renal artery stenosis. 2. 4.7 cm infrarenal abdominal aortic aneurysm. 3. Mild to moderate bilateral hydronephrosis of uncertain etiology. 4. Apparent 16.8 x 9 x 15.4 cm echogenic left lower quadrant/left flank mass. Although this could be artifactual, the findings raise the possibility of a fatty mass such as a lipoma or liposarcoma. A contrast-enhanced CT of the abdomen and pelvis could be obtained for further evaluation. Electronically signed by: Jeffry Carranza M.D. 08/20/2017 3:27 PM Dictated Date/Time: 08/20/2017 11:43 AM
== END | disposition home or self-care (01) ==
LOC: C.ULTRBC 09:08
PROVIDERS: ATTEND Internal Medicine Nephrology
DX: I10 Essential (primary) hypertension (principal)

== ENCOUNTER → 2017-09-05 | Outpatient (CLI) | payer BC ==
[~2017-09-05] MED LIST changes: +OPTIRAY 320 IV PRN
--- NOTE | 2017-09-05 12:32 | DIAGNOSTIC IMAGING REPORT ---
ABD/PELVIS COMBO CT DOSE: 3347.95 mGy.cm HISTORY: Hydronephrosis *IV ONLY* BILATERAL HYDRONEPHROSIS TECHNIQUE: Multiaxial CT images of the abdomen and pelvis were performed pre and post intravenous contrast enhancement. A dose lowering technique was utilized adhering to the principles of ALARA. COMPARISON STUDY: None. FINDINGS: Lung bases are considered clear. Liver enhances uniformly. Pancreas is unremarkable as is the spleen. Small hiatal hernia. Prominent renal pelves bilaterally. This is in the absence of significant ureteral distention. Possibility of bilateral UPJ defect most be considered. Moderate cortical scarring of the kidneys bilaterally. No evidence for calyceal distention. 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 This extends to the aortic bifurcation. There is a linear intraluminal calcification suggesting a chronic stable aortic dissection. Iliac vasculature shows atherosclerotic changes throughout. Bladder is midline. Bowel pattern is considered nonobstructive. No significant abdominal pelvic or inguinal adenopathy. No evidence for soft tissue mass of the left flank region. A simple lipoma may not be seen, however on the CT study. No pathologic mass is appreciated. IMPRESSION: 1. 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 2. No evidence for an obstructing mass or calculus. 3. 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 4. No evidence for a soft tissue mass previously suspected on ultrasound. This is felt to be most likely artifactual. The above report was generated using voice recognition software. It may contain grammatical, syntax or spelling errors. Electronically signed by: Jun Godinez M.D. 09/05/2017 12:30 PM Dictated Date/Time: 09/05/2017 12:21 PM
== END | disposition home or self-care (01) ==
LOC: C.CTS 11:44
PROVIDERS: ATTEND Internal Medicine Nephrology
DX: I71.4 Abdominal aortic aneurysm, without rupture (principal); N13.30 Unspecified hydronephrosis

== ENCOUNTER → 2017-09-07 | Outpatient (CLI) | payer BC ==
[~2017-09-07] MED LIST changes: -OPTIRAY 320 IV PRN
[2017-09-07 11:24] LABS: ALBUMIN 3.6 gm/dl (3.4-5.0); BLOOD UREA NITROGEN 45 mg/dl (7-18); CALCIUM 9.7 mg/dl (8.5-10.1); CARBON DIOXIDE 28 mmol/L (21-32); CREATININE 2.03 mg/dl (0.60-1.20); GLUCOSE 102 mg/dl (70-99); POTASSIUM 4.2 mmol/L (3.5-5.1); SODIUM 137 mmol/L (136-145)
[2017-09-07 11:26] LABS: PHOSPHORUS 3.5 mg/dl (2.5-4.9)
== END | disposition home or self-care (01) ==
LOC: C.LABBC 09:02
PROVIDERS: ATTEND Internal Medicine Nephrology
DX: I10 Essential (primary) hypertension (principal)

== ENCOUNTER → 2017-09-10 | Outpatient (CLI) | payer BC ==
[2017-09-10 10:37] LABS: ALBUMIN 3.7 gm/dl (3.4-5.0); BLOOD UREA NITROGEN 48 mg/dl (7-18); CALCIUM 9.5 mg/dl (8.5-10.1); CARBON DIOXIDE 27 mmol/L (21-32); CREATININE 1.98 mg/dl (0.60-1.20); GLUCOSE 93 mg/dl (70-99); PHOSPHORUS 3.5 mg/dl (2.5-4.9); POTASSIUM 4.4 mmol/L (3.5-5.1); SODIUM 136 mmol/L (136-145)
== END | disposition home or self-care (01) ==
LOC: C.LAB1850 09:10
PROVIDERS: ATTEND Internal Medicine Nephrology
DX: N17.9 Acute kidney failure, unspecified (principal)

== ENCOUNTER → 2017-09-28 | Outpatient (CLI) | payer BC ==
[2017-09-28 13:49] LABS: ALBUMIN 3.7 gm/dl (3.4-5.0); BLOOD UREA NITROGEN 38 mg/dl (7-18); CALCIUM 9.3 mg/dl (8.5-10.1); CARBON DIOXIDE 27 mmol/L (21-32); CREATININE 1.91 mg/dl (0.60-1.20); GLUCOSE 101 mg/dl (70-99); POTASSIUM 4.6 mmol/L (3.5-5.1); SODIUM 138 mmol/L (136-145)
[2017-09-28 13:50] LABS: PHOSPHORUS 3.2 mg/dl (2.5-4.9)
== END | disposition home or self-care (01) ==
LOC: C.LABBC 09:34
PROVIDERS: ATTEND Internal Medicine Nephrology
DX: N17.9 Acute kidney failure, unspecified (principal)

== ENCOUNTER 2017-11-25 12:01 | Emergency (ER) | payer BC ==
[~2017-11-25] VITALS: Ht 162.6 cm; Wt 93.9 kg
[~2017-11-25 12:01] MED LIST changes: -ASPEC81 PO; +ASPI-320 PO
[2017-11-25 12:05] VITALS: TEMP 36.4; Ht 162.6 cm; Wt 93.9 kg
[2017-11-25] MEDS ORDERED: SODIUM CHLORIDE 0.9% 1000ML 1,000 ML IV STA (12:22)
--- NOTE | 2017-11-25 12:28 | EMERGENCY ROOM VISIT NOTE ---
History Report prepared by An: Roland Montero Under the Supervision of: Dr. Christophe Rainey M.D. First contact with patient: 12:07 Chief Complaint: CONFUSION Stated Complaint: CONFUSION History of Present Illness The patient is a 87 year old female who presents to the Emergency Room with complaints of constant altered mental status that began this morning. The patient states "in faith today I didn't feel good and kept closing my eyes". She reports whenever she looked around, it seemed like something was floating around. The patient states that the last thing she remembers is going home and having a need to urinate. She reports she does not remember getting home or sitting in her chair. The patient states she usually calls her daughter after faith and notes she did not call her today. She reports that her daughter called her today and woke her up in her chair. She reports that she did eat today and was able to take all of her daily medications. She denies any pain, numbness, difficulty talking, fall, chest pain, shortness of breath, and blood in her stools. The patient reports a history of hypertension and a UT last year. She reports she is on Plavix, Aspirin, Lisinopril, Losartan, and Hydrochlorothiazide. Source of History: patient Onset: this morning Position: other (global) Quality: other (confused) Timing: constant Associated Symptoms: No headache, No neck pain, No chest pain, No SOB, No abdominal pain, No back pain, No melena, No hematochezia, No numbness Note: Associated symptoms: lightheadedness, vision changes Review of Systems See HPI for pertinent positives and negatives. A total of ten systems were reviewed and were otherwise negative. Past Medical & Surgical Medical Problems: (1) Advance care planning (2) HTN (hypertension) Family History Cancer Heart disease Hypertension Social History Smoking Status: Never Smoker Smokeless Tobacco Use: No Alcohol Use: none Drug Use: none Housing Status: lives alone Occupation Status: retired Current/Historical Medications Scheduled Amlodipine (Norvasc), 2.5 MG PO DAILY Aspirin (Aspirin EC Low Dose), 81 MG PO QAM Carvedilol (Coreg), 12.5 MG PO BID Ciprofloxacin Hcl (Cipro), 1 TAB PO BID Clopidogrel Bisulfate (Clopidogrel), 75 MG PO QAM Hydrochlorothiazide (Hctz), 25 MG PO @1AM Losartan Potassium (Cozaar), 100 MG PO DAILY Multiple Vitamins W/ Minerals (Preservision Areds 2), 1 CAP PO BID Scheduled PRN Nitroglycerin (Nitrostat), 0.4 MG SL UD PRN for Chest Pain Allergies Coded Allergies: No Known Allergies (Unverified , 11/25/17) Physical Exam Vital Signs Date Time Temp Pulse Resp B/P (MAP) Pulse Ox O2 Delivery O2 Flow Rate FiO2 11/25/17 14:40 58 20 198/82 98 Room Air 11/25/17 13:30 187/86 11/25/17 13:28 56 20 216/87 98 Room Air 11/25/17 12:59 53 11/25/17 12:05 36.4 56 20 213/88 97 Room Air Physical Exam Physical Exam GENERAL: She is oriented to person, place, and time. She appears well- developed and well-nourished. She does not appear distressed. ____ HENT: Exam performed. Head: Normocephalic and atraumatic. Right Ear: External ear normal. No mastoid tenderness. Left Ear: External ear normal. No mastoid tenderness. Mouth/Throat: The oropharynx is clear and moist. No trismus in the jaw. No dental abscesses or uvula swelling. No oropharyngeal exudate or tonsillar abscesses. ____ EYES: Conjunctivae and EOM are normal. Pupils are equal, round, and reactive to light. Right eye exhibits no discharge. Left eye exhibits no discharge. No scleral icterus. ____ NECK: Normal range of motion. Neck supple. No JVD present. No spinous process tenderness present. No carotid bruit present. No rigidity. No tracheal deviation and normal range of motion present. No Brudzinski's sign and no Kernig 's sign noted. ____ CV: Normal rate, regular rhythm, normal heart sounds and intact distal pulses. There is no peripheral edema. Palpable radial pulses bue. ____ PULM/CHEST: Effort normal and breath sounds normal. No respiratory distress. No stridor. She has no wheezes. She has no rales. Chest Wall: She exhibits no tenderness. ____ ABD: The abdomen is soft. Bowel sounds are normal. She has no distension. No mass is present. There is no tenderness. There is no rebound, no guarding, no Valdez's sign and no tenderness at McBurney's point. Rovsig negative MUSC/SKEL: Normal range of motion. There is no peripheral edema, tenderness or deformity. LYMPH: No cervical adenopathy. ____ NEURO: She is alert and oriented to person, place, and time. She has normal strength. No cranial nerve deficit or sensory deficit. Coordination and gait normal. GCS eye subscore is 4. GCS verbal subscore is 5. GCS motor subscore is 6. Cerebellar tests wnl. ____ SKIN: Skin is warm and dry. She is not diaphoretic. ____ PSYCH: She has a normal mood and affect. Her behavior is normal. Judgment and thought content normal. ____ Medical Decision & Procedures ER Provider Diagnostic Interpretation: Radiology results as stated below per my review and radiologist interpretation: CT HEAD WITHOUT CONTRAST (CT) CLINICAL HISTORY: Acute change in mental status. Confusion. COMPARISON STUDY: No previous studies for comparison. TECHNIQUE: Axial CT of the brain is performed from the vertex to the skull base. IV contrast was not administered for this examination. A dose lowering technique was utilized adhering to the principles of ALARA. CT DOSE: 537.48 mGy.cm FINDINGS: No intra or extra-axial mass lesions are visualized. There is no CT evidence of acute cortical infarction. There is no evidence of midline shift. There is no acute hemorrhage. No calvarial fractures are visualized. There are moderate white matter hypodensities likely on a small vessel basis. 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 There is no evidence of acute sinusitis IMPRESSION: No acute intracranial findings Electronically signed by: Nicolas Segundo M.D. 11/25/2017 1:20 PM Dictated Date/Time: 11/25/2017 1:19 PM Laboratory Results 11/25/17 12:30 Red Blood Count 4.12, Mean Corpuscular Volume 91.3, Mean Corpuscular Hemoglobin 30.8, Mean Corpuscular Hemoglobin Concent 33.8, Mean Platelet Volume 10.7, Neutrophils (%) (Auto) 80.6, Lymphocytes (%) (Auto) 8.7, Monocytes (%) (Auto) 6.6, Eosinophils (%) (Auto) 3.0, Basophils (%) (Auto) 0.7, Neutrophils # (Auto) 7.99, Lymphocytes # (Auto) 0.86, Monocytes # (Auto) 0.65, Eosinophils # (Auto) 0.30, Basophils # (Auto) 0.07 11/25/17 12:30 Test 11/25/17 11:25 11/25/17 12:30 11/25/17 12:52 Urine Color YELLOW Urine Appearance TURBID (CLEAR) Urine pH 6.0 (4.5-7.5) Urine Specific [place] 1.015 (1.000-1.030) Urine Protein NEG (NEG) Urine Glucose (UA) NEG (NEG) Urine Ketones NEG (NEG) Urine Occult Blood TRACE (NEG) Urine Nitrite POS (NEG) Urine Bilirubin NEG (NEG) Urine Urobilinogen NEG (NEG) Urine Leukocyte Esterase LARGE (NEG) Urine WBC (Auto) >30 /hpf (0-5) Urine RBC (Auto) 0-4 /hpf (0-4) Urine Hyaline Casts (Auto) /lpf (0-5) Urine Epithelial Cells (Auto) >30 /lpf (0-5) Urine Bacteria (Auto) 4+ (NEG) Urine Pathogenic Casts /lpf (0) White Blood Count 9.91 K/uL (4.8-10.8) Red Blood Count 4.12 M/uL (4.2-5.4) Hemoglobin 12.7 g/dL (12.0-16.0) Hematocrit 37.6 % (37-47) Mean Corpuscular Volume 91.3 fL (80-100) Mean Corpuscular Hemoglobin 30.8 pg (25-34) Mean Corpuscular Hemoglobin Concent 33.8 g/dl (32-36) Platelet Count 244 K/uL (130-400) Mean Platelet Volume 10.7 fL (7.4-10.4) Neutrophils (%) (Auto) 80.6 % Lymphocytes (%) (Auto) 8.7 % Monocytes (%) (Auto) 6.6 % Eosinophils (%) (Auto) 3.0 % Basophils (%) (Auto) 0.7 % Neutrophils # (Auto) 7.99 K/uL (1.4-6.5) Lymphocytes # (Auto) 0.86 K/uL (1.2-3.4) Monocytes # (Auto) 0.65 K/uL (0.11-0.59) Eosinophils # (Auto) 0.30 K/uL (0-0.5) Basophils # (Auto) 0.07 K/uL (0-0.2) RDW Standard Deviation 46.6 fL (36.4-46.3) RDW Coefficient of Variation 13.9 % (11.5-14.5) Immature Granulocyte % (Auto) 0.4 % Immature Granulocyte # (Auto) 0.04 K/uL (0.00-0.02) Anion Gap 8.0 mmol/L (3-11) Est Creatinine Clear Calc Drug Dose 21.1 ml/min Estimated GFR () 24.5 Estimated GFR (Non- 21.1 BUN/Creatinine Ratio 23.9 (10-20) Lactic Acid Level 0.9 mmol/L (0.4-2.0) Calcium Level 9.3 mg/dl (8.5-10.1) Bedside Glucose 106 mg/dl (70-90) Laboratory results reviewed by me Medications Administered Medications (Trade) Dose Ordered Sig/[place] Route Start Time Stop Time Status Last Admin Dose Admin Sodium Chloride 1,000 ml @ 125 mls/hr Q8H STAT IV 11/25/17 12:22 11/25/17 14:54 DC 11/25/17 12:22 125 MLS/HR Ceftriaxone Sodium (Rocephin Inj) 1 gm NOW STAT IV 11/25/17 12:54 11/25/17 12:55 DC 11/25/17 13:27 1 GM ECG Per My Interpretation Indication: altered mental status Rate (beats per minute): 55 Rhythm: sinus bradycardia Findings: other (CA QRS QTC wnl. No ST elevation or depression.) ED Course 1216: The patient was evaluated in room B03B. A complete history and physical exam was performed. 1222: Ordered Sodium Chloride 1000 ml @ 125 mls/hr IV. 1254: Ordered Rocephin Injection 1 gm IV. 1356: I reevaluated the patient. She is alert and oriented. She is in no distress and feels fine. Her repeat examination is wnl. Imaging and lab is wnl with exception to urine that is suggestive of a UTI. Her daughter states a similar episode happened a few years ago when she got confused due to a UTI. The patient was treat outpatient with antibiotics at that time. The patient has no neurological deficits or stroke symptoms. She will be discharged with antibiotics. DISCHARGE - Plan of care discussed with patient and questions answered. The patient was given both verbal and printed discharge instructions. The patient verbalized understanding and ability to comply. The patient is to seek outpatient follow up as noted in the discharge instructions. The patient verbalized understanding and ability to comply. The patient is discharged in stable condition. The patient was instructed to return for worsening symptoms. Medical Decision 1356: I reevaluated the patient. She is alert and oriented. She is in no distress and feels fine. Her repeat examination is wnl. Imaging and lab is wnl with exception to urine that is suggestive of a UTI. Her daughter states a similar episode happened a few years ago when she got confused due to a UTI. The patient was treat outpatient with antibiotics at that time. The patient has no neurological deficits or stroke symptoms. She will be discharged with antibiotics. DISCHARGE - Plan of care discussed with patient and questions answered. The patient was given both verbal and printed discharge instructions. The patient verbalized understanding and ability to comply. The patient is to seek outpatient follow up as noted in the discharge instructions. The patient verbalized understanding and ability to comply. The patient is discharged in stable condition. The patient was instructed to return for worsening symptoms. Medication Reconcilliation Current Medication List: was personally reviewed by me Blood Pressure Screening Patient's blood pressure: Elevated blood pressure Blood pressure disposition: Referred to PCP Impression Primary Impression: UTI (urinary tract infection) Scribe Attestation The scribe's documentation has been prepared under my direction and personally reviewed by me in its entirety. I confirm that the note above accurately reflects all work, treatment, procedures, and medical decision making performed by me. . The chart was completed utilizing [employer] Speech voice recognition software. Grammatical errors, random word insertions, pronoun errors, and incomplete sentences are an occasional consequence of this system due to software limitations, ambient noise, and hardware issues. Any formal questions or concerns about the content, text, or information contained within the body of this dictation should be directly addressed to the physician for clarification. Departure Information Prescriptions Ciprofloxacin Hcl (CIPRO) 500 Mg Tab 1 TAB PO BID for 7 Days, #14 TAB Prov: Christophe Rainey M.D. 11/25/17 Referrals Charly Santillan M.D. (PCP) Forms HOME CARE DOCUMENTATION FORM, IMPORTANT VISIT INFORMATION, WORK / SCHOOL INSTRUCTIONS Patient Instructions ED UTI Cystitis Female, My [facility] Additional Instructions Return to the emergency department if you develop fever greater 100.4, increasing headache, increasing confusion, changes in her vision, numbness, tingling, weakness, seizure, lose consciousness. Problem Qualifiers Primary Impression: UTI (urinary tract infection) Urinary tract infection type: acute cystitis Hematuria presence: without hematuria Qualified Codes: N30.00 - Acute cystitis without hematuria
[2017-11-25 12:52] LABS: BASO % 0.7 %; BASO ABS # 0.07 K/uL (0-0.2); HEMATOCRIT 37.6 % (37-47); HEMOGLOBIN 12.7 g/dL (12.0-16.0); IG# 0.04 K/uL (0.00-0.02); LYMPH % 8.7 %; LYMPH ABS # 0.86 K/uL (1.2-3.4); MEAN CELL VOLUME 91.3 fL (80-100); MEAN CORPUSCULAR HEMOGLOBIN 30.8 pg (25-34); MEAN CORPUSCULAR HGB CONC 33.8 g/dl (32-36); MEAN PLATELET VOLUME 10.7 fL (7.4-10.4); MONO % 6.6 %; MONO ABS # 0.65 K/uL (0.11-0.59); NEUT % 80.6 %; NEUT ABS # 7.99 K/uL (1.4-6.5); PLATELET COUNT 244 K/uL (130-400); RED CELL DISTRIBUTION WIDTH CV 13.9 % (11.5-14.5); RED CELL DISTRIBUTION WIDTH SD 46.6 fL (36.4-46.3); WHITE BLOOD COUNT 9.91 K/uL (4.8-10.8)
[2017-11-25] MEDS ORDERED: CEFTRIAXONE SOD INJ 1 GM ADDVIAL IV STA (12:54)
[2017-11-25 13:10] LABS: CALCIUM 9.3 mg/dl (8.5-10.1); CREATININE 2.05 mg/dl (0.60-1.20); POTASSIUM 4.5 mmol/L (3.5-5.1)
[2017-11-25] MEDS ORDERED: AMLO2.5T PO (13:17)
[2017-11-25] MEDS ORDERED: LOSA1TAB38 PO (13:17)
[2017-11-25] MEDS ORDERED: CARV12.52 PO (13:17)
[2017-11-25] MEDS ORDERED: HYDR25TA4 PO (13:17)
--- NOTE | 2017-11-25 13:21 | DIAGNOSTIC IMAGING REPORT ---
CT HEAD WITHOUT CONTRAST (CT) CLINICAL HISTORY: Acute change in mental status. Confusion. COMPARISON STUDY: No previous studies for comparison. TECHNIQUE: Axial CT of the brain is performed from the vertex to the skull base. IV contrast was not administered for this examination. A dose lowering technique was utilized adhering to the principles of ALARA. CT DOSE: 537.48 mGy.cm FINDINGS: No intra or extra-axial mass lesions are visualized. There is no CT evidence of acute cortical infarction. There is no evidence of midline shift. There is no acute hemorrhage. No calvarial fractures are visualized. There are moderate white matter hypodensities likely on a small vessel basis. 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 There is no evidence of acute sinusitis IMPRESSION: No acute intracranial findings Electronically signed by: Nicolas Segundo M.D. 11/25/2017 1:20 PM Dictated Date/Time: 11/25/2017 1:19 PM
[2017-11-25] MEDS ORDERED: CIPR-255 PO (14:27)
[2017-11-25 14:40] VITALS: BP 198/82; PULSE 58; O2SAT 98
--- NOTE | 2017-11-27 14:20 | Pharmacy Progress Note ---
ED Pharmacist Culture FollowUp Date of Service: November 27, 2017. Patient was sent home with a prescription for CIPRO 500MG BID, which should cover the E. COLI growing from the patient's urine culture. Blood cultures are also noted to be negative to date. Confirmed with Dr. Hancock that dosing of 500mg BID X 7 days was okay given patients renal function (~21). Dr. Hancock preferred to continue this dosing as renal function borderline and as to not confuse the patient.
== END 2017-11-25 14:46 | disposition home or self-care (01) ==
LOC: C.EDB 12:01
DX: N30.00 Acute cystitis without hematuria (principal); I10 Essential (primary) hypertension; Z79.82 Long term (current) use of aspirin; Z79.01 Long term (current) use of anticoagulants; Z79.899 Other long term (current) drug therapy